=== PATIENT | male | born 1995 | race Caucasian/White ===

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

== ENCOUNTER 2017-01-16 22:03 | Emergency (ER) | payer OTHER ==
[2017-01-16 22:12] VITALS: BP 136/80; PULSE 100; RESP 18; TEMP 98
--- NOTE | 2017-01-16 22:39 | ED ---
General Adult HPI - General Chief complaint: Wound/Laceration Stated complaint: finger lac Time Seen by Provider: 01/16/17 22:29 Source: patient, RN notes reviewed Mode of arrival: ambulatory Limitations: no limitations - History of Present Illness Initial comments: 21-year-old male presents for left index finger laceration. Patient states he was cutting tomatoes and finger. He noticed bleeding to the area so he was concerned. Patient does not recall his last tetanus was less than 10 years ago. Patient states is no other injuries from the incident. Hemostasis finger he notices some stinging in the finger. Patient denies any other symptoms at this time. Patient vigorously there is no pain. He has noticed some bleeding from the site of the injury. Patient denies any recent fever, chills, shortness of breath, chest pain, back pain, abdominal pain, nausea vomiting, numbness or tingling, dysuria or hematuria, constipation or diarrhea, headaches or visual changes, or any other current symptoms. - Related Data Home Medications Medication Instructions Recorded Confirmed Divalproex [Depakote] 250 mg PO HS 12/22/15 01/16/17 Divalproex [Depakote] 500 mg PO BID 12/22/15 01/16/17 chlorproMAZINE HCL [Thorazine] 300 mg PO HS 06/30/16 01/16/17 lamoTRIgine [LaMICtal] 100 mg PO QAM 06/30/16 01/16/17 Allergies Allergy/AdvReac Type Severity Reaction Status Date / Time Penicillins Allergy Unknown Verified 06/30/16 19:38 Childhood venom-honey bee Allergy Unknown Verified 06/30/16 19:38 [bee venom (honey bee)] Childhood Review of Systems ROS Statement: Those systems with pertinent positive or pertinent negative responses have been documented in the HPI. ROS Other: All systems not noted in ROS Statement are negative. Past Medical History Past Medical History: No Reported History History of Any Multi-Drug Resistant Organisms: None Reported Past Surgical History: No Surgical Hx Reported Past Psychological History: Schizoaffective Disorder Smoking Status: Former smoker Past Alcohol Use History: None Reported Past Drug Use History: None Reported General Exam - General Exam Comments Initial Comments: General: The patient is awake and alert, in no distress, and does not appear acutely ill. Neck: The neck is supple, there is no tenderness. Cardiovascular: There is a regular rate and rhythm. No murmur, rub or gallop is appreciated. Respiratory: Lungs are clear to auscultation, respirations are non-labored, breath sounds are equal. No wheezes, stridor, rales, or rhonchi. Musculoskeletal: Sensation intact with 2+ pulses. Left upper extremity. Full range of motion of the left index finger patient does appear to have a small 1 cm abrasion to the distal aspect of the left index finger. 5 out of 5 muscle strength testing throughout. Neurological: CN II-XII intact, There are no obvious motor or sensory deficits. Coordination appears grossly intact. Speech is normal. Skin: Skin is warm and dry and no rashes or lesions are noted. Psychiatric: Normal mood and affect. Limitations: no limitations Course Vital Signs 01/16/17 22:09 Temperature 98.0 F Pulse Rate 100 Respiratory 18 Rate Blood Pressure 136/80 O2 Sat by Pulse 100 Oximetry Medical Decision Making - Medical Decision Making 21-year-old male presents emergency Department what appears to be an abrasion to the left finger. At this time patient underwent cleansing of the wound bandage was placed. We discussed return parameters all patient's questions. He stated that he understood the plan. All questions have been answered. He will be discharged home Disposition Clinical Impression: Abrasion of left index finger Disposition: HOME SELF-CARE Condition: Stable Instructions: Abrasion (ED) Additional Instructions: Please use medication as discussed. Please follow up with family doctor if symptoms have not improved over the next two days. Please return to the emergency room if your symptoms increase or worsen or for any other concerns. Referrals: Tian Banerjee Jr, [Primary Care Provider] - 1-2 days Time of Disposition: 22:37
== END 2017-01-16 23:12 | disposition home or self-care (01) ==
LOC: EC 22:03
DX: S60.411A Abrasion of left index finger, initial encounter (principal); F25.9 Schizoaffective disorder, unspecified; Z87.891 Personal history of nicotine dependence; Z79.899 Other long term (current) drug therapy; Z88.0 Allergy status to penicillin; Z91.030 Bee allergy status; W45.8XXA Other foreign body or object entering through skin, initial encounter
CPT/HCPCS: 99282

== ENCOUNTER 2017-02-11 17:00 | Emergency (ER) | payer OTHER ==
--- NOTE | 2017-02-11 17:39 | ED ---
Psych HPI - General Chief Complaint: Psychiatric Symptoms Stated Complaint: mental health eval Time Seen by Provider: 02/11/17 17:07 Source: patient, family, RN notes reviewed Mode of arrival: ambulatory Limitations: no limitations - History of Present Illness Initial Comments: This is 21-year-old male presents emergency room with family for psychiatric evaluation. Patient has extensive history of psychiatric problems and spent 4 years and he is awake. Patient has been normal and is followed by [facility]. Patient states that he does not want to talk this time will not give any states that he is not suicidal states it is very angry at his father and wants to hurt his father. Patient states he does not want to hurt any other people. Patient denies any drug use at this time feels a history of denies any alcohol abuse. Patient family gives most information at this time and states that he was questioning his father about taking something and states that he blew up and started yelling, swearing and hitting things - Related Data Home Medications Medication Instructions Recorded Confirmed chlorproMAZINE HCL [Thorazine] 300 mg PO HS 06/30/16 02/11/17 lamoTRIgine [LaMICtal] 100 mg PO QAM 06/30/16 02/11/17 Acetaminophen Tab [Tylenol Tab] 650 mg PO Q6H PRN 02/11/17 02/11/17 Divalproex ER [Depakote ER] 500 mg PO BID 02/11/17 02/11/17 Divalproex Sodium [Depakote ER] 250 mg PO HS 02/11/17 02/11/17 Loratadine [Claritin] 10 mg PO DAILY PRN 02/11/17 02/11/17 Allergies Allergy/AdvReac Type Severity Reaction Status Date / Time Penicillins Allergy Rash/Hives Verified 02/11/17 17:38 venom-honey bee Allergy Swelling Verified 02/11/17 17:38 [bee venom (honey bee)] Review of Systems ROS Statement: Those systems with pertinent positive or pertinent negative responses have been documented in the HPI. ROS Other: All systems not noted in ROS Statement are negative. Past Medical History Past Medical History: No Reported History History of Any Multi-Drug Resistant Organisms: None Reported Past Surgical History: No Surgical Hx Reported Past Psychological History: Schizoaffective Disorder Smoking Status: Former smoker Past Alcohol Use History: None Reported Past Drug Use History: None Reported General Exam Limitations: no limitations General appearance: alert, in no apparent distress Head exam: Present: atraumatic, normocephalic, normal inspection Eye exam: Present: normal appearance, PERRL, EOMI. Absent: scleral icterus, conjunctival injection, periorbital swelling ENT exam: Present: normal exam, normal oropharynx, mucous membranes moist, TM's normal bilaterally, normal external ear exam Neck exam: Present: normal inspection, full ROM. Absent: tenderness, meningismus, lymphadenopathy Respiratory exam: Present: normal lung sounds bilaterally. Absent: respiratory distress, wheezes, rales, rhonchi, stridor Cardiovascular Exam: Present: normal rhythm, tachycardia, normal heart sounds. Absent: systolic murmur, diastolic murmur, rubs, gallop, clicks GI/Abdominal exam: Present: soft, normal bowel sounds. Absent: distended, tenderness, guarding, rebound, rigid Psychiatric exam: Present: flat affect Skin exam: Present: warm, dry, intact, normal color. Absent: rash Course Vital Signs 02/11/17 02/11/17 17:06 19:40 Temperature 97.4 F L Pulse Rate 121 H 100 Respiratory 16 16 Rate Blood Pressure 136/80 144/81 O2 Sat by Pulse 98 98 Oximetry Medical Decision Making - Medical Decision Making 21-year-old male presented for behavioral issues. Patient was noted by [facility] and case discussed with psychiatrist. They do recommend the patient be discharged at this time. Patient parents agree to this plan and return parameters were discussed. Disposition Clinical Impression: Behavioral problems Disposition: HOME SELF-CARE Condition: Stable Instructions: Conduct Disorder (ED) Additional Instructions: Please return to the Emergency Department if symptoms worsen or any other concerns. Referrals: None,Stated [REFERRING] - 1-2 days Time of Disposition: 20:03
[2017-02-11 20:45] VITALS: BP 138/73; PULSE 107; RESP 18; TEMP 97.9
== END 2017-02-11 20:59 | disposition home or self-care (01) ==
LOC: EC 17:00
DX: R46.89 Other symptoms and signs involving appearance and behavior (principal); F25.9 Schizoaffective disorder, unspecified; Z87.891 Personal history of nicotine dependence; Z88.0 Allergy status to penicillin; Z91.030 Bee allergy status; Z79.899 Other long term (current) drug therapy
CPT/HCPCS: 80306; 82075; 99284

== ENCOUNTER 2018-05-18 19:55 | Emergency (ER) | payer MEDICARE, OTHER ==
--- NOTE | 2018-05-18 22:00 | XR ---
EXAMINATION TYPE: XR thoracic spine complete DATE OF EXAM: 05/18/2018 COMPARISON: NONE HISTORY: Fell down the stairs. Pain TECHNIQUE: 3 views FINDINGS: The thoracic vertebra have fairly normal spacing and alignment. Posterior elements are inta ct. There is no paraspinal mass. IMPRESSION: Normal thoracic spine.
--- NOTE | 2018-05-18 22:02 | XR ---
EXAMINATION TYPE: XR lumbar spine 2 or 3V DATE OF EXAM: 05/18/2018 COMPARISON: NONE HISTORY: Fell down the stairs. Back pain TECHNIQUE: 3 views FINDINGS: There is slight lumbar dextroscoliosis. Disc spaces are normal. Posterior elements are inta ct. There is no compression fracture. Sacroiliac joints appear normal. IMPRESSION: No fracture seen. Minimal dextroscoliosis.
--- NOTE | 2018-05-18 22:12 | ED ---
Fall HPI - General Chief Complaint: Fall Stated Complaint: Fell downstairs/back pain Time Seen by Provider: 05/18/18 20:52 Source: patient Mode of arrival: ambulatory - History of Present Illness Initial Comments: This is a 22-year-old male who denies past focal history presenting today for chief complaint of back pain after fall. Patient states that just prior to arrival he was walking down steps in socks. He states steps were wooden when he slipped falling on his back sliding down 5 stairs. She denies head injury, loss of consciousness or injury to any other extremity. Patient noted a small bruise on his back as well as localized pain. Patient states he took Advil which alleviated his pain however his mother insisted he present for evaluation. Patient denies any numbness, tingling, loss sensation, paresthesias of the upper or lower cherries. Patient denies any loss of bowel bladder control, urinary retention, numbness between the legs or perineal region , or muscle weakness of the lower extremity. Upon arrival patient is well- appearing, ambulatory without difficulty. Vital signs within normal limits. Remainder ROS negative, patient denies any recent fever, chills, shortness of breath, chest pain, abdominal pain, nausea or vomiting, numbness or tingling, dysuria or hematuria, constipation or diarrhea, headaches or visual changes, or any other complaints. - Related Data Home Medications Medication Instructions Recorded Confirmed chlorproMAZINE HCL [Thorazine] 300 mg PO HS 06/30/16 05/18/18 lamoTRIgine [LaMICtal] 100 mg PO QAM 06/30/16 05/18/18 Acetaminophen Tab [Tylenol Tab] 650 mg PO Q6H PRN 02/11/17 05/18/18 Divalproex ER [Depakote ER] 500 mg PO BID 02/11/17 05/18/18 Divalproex Sodium [Depakote ER] 250 mg PO HS 02/11/17 05/18/18 Loratadine [Claritin] 10 mg PO DAILY PRN 02/11/17 05/18/18 Ibuprofen [Advil] 200 mg PO Q8HR 05/18/18 05/18/18 Allergies Allergy/AdvReac Type Severity Reaction Status Date / Time Penicillins Allergy Rash/Hives Verified 05/18/18 20:51 venom-honey bee Allergy Swelling Verified 05/18/18 20:51 [bee venom (honey bee)] Review of Systems ROS Statement: Those systems with pertinent positive or pertinent negative responses have been documented in the HPI. ROS Other: All systems not noted in ROS Statement are negative. Constitutional: Denies: chills Eyes: Denies: eye pain ENT: Denies: ear pain, throat pain Respiratory: Denies: cough, dyspnea, wheezes Cardiovascular: Denies: chest pain Gastrointestinal: Denies: abdominal pain Genitourinary: Denies: urgency, dysuria Musculoskeletal: Reports: back pain Skin: Denies: rash, lesions Neurological: Denies: headache, weakness, numbness, paresthesias, confusion, abnormal gait, vertigo Past Medical History Past Medical History: No Reported History History of Any Multi-Drug Resistant Organisms: None Reported Past Surgical History: No Surgical Hx Reported Additional Past Surgical History / Comment(s): extra thumb removed from right hand. wisdom teeth. eustachian tubes. Past Psychological History: Schizoaffective Disorder Smoking Status: Former smoker Past Alcohol Use History: None Reported Past Drug Use History: None Reported General Exam - General Exam Comments Initial Comments: General: The patient is awake and alert, in no distress, and does not appear acutely ill. Eye: +3 pupils are equal, round and reactive to light, extra-ocular movements are intact. No nystagmus. There is normal conjunctiva bilaterally. No signs of icterus. Ears, nose, mouth and throat: There are moist mucous membranes and no oral lesions. Neck: The neck is supple, there is no tenderness or JVD. Cardiovascular: There is a regular rate and rhythm. No murmur, rub or gallop is appreciated. Respiratory: Lungs are clear to auscultation, respirations are non-labored, breath sounds are equal. No wheezes, stridor, rales, or rhonchi. Musculoskeletal: Inspection of the lumbar spine there is small area of ecchymosis noted paravertebral of the lower thoracic region. Patient denies any midline tenderness to palpation of the length of the spinal column. Patient is able to fully flex, extend hyperextend, lateral flex and rotate at the lumbar and thoracic spine without difficulty or complaints of pain. No noted curvatures upon Mccabe in for testing. Strength 5/5 of the lower extremities equally bilaterally. Sensation intact of the lower extremities equally bilaterally, no saddle anesthesia noted.. DP ulses equal bilaterally 2+ . +2 out of 5 deep tendon reflexes of the patellar bilaterally. No fasciculations or myoclonus noted. Neurological: A&O x 3. CN II-XII intact, There are no obvious motor or sensory deficits. Coordination appears grossly intact. Speech is normal. Skin: Skin is warm and dry and no rashes or lesions are noted. Psychiatric: Cooperative, appropriate mood & affect, normal judgment. Limitations: no limitations Course Vital Signs 05/18/18 05/18/18 05/18/18 20:16 21:10 22:51 Temperature 98.1 F 98.3 F Pulse Rate 114 H 104 H 96 Respiratory 20 16 18 Rate Blood Pressure 134/76 141/77 O2 Sat by Pulse 100 99 97 Oximetry Medical Decision Making - Medical Decision Making No focal neurological deficit examination. Patient neurovascularly intact. No signs concerning for cauda equina at this time. X-rays negative for fracture. Patient refusing pain medication, stating he was told to come for hydration by mother. Patient states he is ready for discharge. At this time to feel patient is safe for discharge with primary care follow-up next 1-2 days. I gave patient instruction on symptomatically care. Patient verbalizes understanding. All return parameters were discussed at length patient who verbalizes understanding. I answered all patient's questions best ability. Patient was discharged in stable condition with vital signs within acceptable limits. Case discussed with Dr. Schumacher prior to discharge. Disposition Clinical Impression: Fall, Back pain Disposition: HOME SELF-CARE Condition: Good Instructions: Low Back Strain (ED) Additional Instructions: Please use over the counter medication as discussed. Please follow-up with family doctor in the next 2 days. Please return to emergency room if the symptoms increase or worsen or for any other concerns. Is patient prescribed a controlled substance at d/c from ED?: No Referrals: Tian Banerjee Jr, [Primary Care Provider] - 1-2 days Time of Disposition: 22:12
[2018-05-18 22:52] VITALS: BP 141/77; PULSE 96; RESP 18; TEMP 98.3
== END 2018-05-18 22:43 | disposition home or self-care (01) ==
LOC: EC 19:55
DX: M54.9 Dorsalgia, unspecified (principal); F25.9 Schizoaffective disorder, unspecified; Z79.899 Other long term (current) drug therapy; Z88.0 Allergy status to penicillin; Z91.030 Bee allergy status; Z87.891 Personal history of nicotine dependence; W10.9XXA Fall (on) (from) unspecified stairs and steps, initial encounter; Y93.01 Activity, walking, marching and hiking; Y92.009 Unspecified place in unspecified non-institutional (private) residence as the place of occurrence of the external cause
CPT/HCPCS: 72072; 72100; 99283

== ENCOUNTER → 2018-08-20 | Outpatient (CLI) | payer MEDICARE, OTHER ==
[2018-08-20 11:34] LABS: Basophils % (A) 1 %; Eosinophils # (A) 0.2 k/uL (0-0.7); Eosinophils % (A) 4 %; HCT 43.8 % (39.0-53.0); Lymphocytes # (A) 1.9 k/uL (1.0-4.8); Lymphocytes % (A) 42 %; MCH 28.4 pg (25.0-35.0); MCHC 34.2 g/dL (31.0-37.0); MCV 83.1 fL (80.0-100.0); Mean Platelet Volume 8.5; Monocytes # (A) 0.4 k/uL (0-1.0); Monocytes % (A) 8 %; Neutrophils # (A) 1.9 k/uL (1.3-7.7); Neutrophils % (A) 42 %; Platelet Count 234 k/uL (150-450); RBC 5.27 m/uL (4.30-5.90); RDW 13.9 % (11.5-15.5); WBC 4.6 k/uL (3.8-10.6)
[2018-08-20 17:44] LABS: LDL Cholesterol,Calculated 77.8 mg/dL (0.0-131.0); VLDL Calculation 11.2 mg/dL (5.00-40.00)
[2018-08-20 18:05] LABS: Valproic Acid (Depakene) 81.7 ug/mL (50.0-100.0)
[2018-08-20 19:09] LABS: Hemoglobin A1C 5.1 % (4.0-6.0)
== END | disposition home or self-care (01) ==
LOC: LABWHC1 10:28
PROVIDERS: ATTEND Family Medicine
DX: Z51.81 Encounter for therapeutic drug level monitoring (principal); Z79.899 Other long term (current) drug therapy
CPT/HCPCS: 36415; 80061; 80164; 83036; 84443; 85025

== ENCOUNTER → 2019-11-01 | Outpatient (CLI) | payer MEDICARE, OTHER ==
[2019-11-01 12:05] LABS: Basophils % (A) 1 %; Eosinophils # (A) 0.2 k/uL (0-0.7); Eosinophils % (A) 3 %; HGB 14.5 gm/dL (13.0-17.5); Lymphocytes # (A) 2.2 k/uL (1.0-4.8); Lymphocytes % (A) 39 %; MCH 28.6 pg (25.0-35.0); MCHC 33.7 g/dL (31.0-37.0); MCV 84.9 fL (80.0-100.0); Monocytes # (A) 0.5 k/uL (0-1.0); Monocytes % (A) 10 %; Neutrophils # (A) 2.4 k/uL (1.3-7.7); Neutrophils % (A) 43 %; Platelet Count 229 k/uL (150-450); RBC 5.06 m/uL (4.30-5.90); RDW 13.4 % (11.5-15.5); WBC 5.5 k/uL (3.8-10.6)
[2019-11-01 19:41] LABS: Albumin 4.6 g/dL (3.80-4.90); Albumin/Globulin Ratio 2.09 (1.60-3.17); Anion Gap 10.7 mmol/L (4.00-12.00); BUN/Creat Ratio 15.56 Ratio (12.00-20.00); Calcium 9.6 mg/dL (8.7-10.3); Carbon Dioxide 25.3 mmol/L (21.6-31.8); Chol/HDL Ratio 3.27; Globulin 2.2 g/dL (1.6-3.3); LDL Cholesterol,Calculated 85.4 mg/dL (0.0-131.0); Non-African American GFR(CKD) 120.8 (60.0-200.0); Potassium 4.7 mmol/L (3.5-5.5); Total Bilirubin 0.5 mg/dL (0.2-1.2); Total Protein 6.8 g/dL (6.2-8.2); VLDL Calculation 14.6 mg/dL (5.00-40.00)
[2019-11-01 19:44] LABS: Valproic Acid (Depakene) 75.4 ug/mL (50.0-100.0)
[2019-11-01 19:49] LABS: T4, Free (Free Thyroxine) 1.1 ng/dL (0.80-1.80)
[2019-11-01 21:16] LABS: Hemoglobin A1C 5.5 % (4.0-6.0)
== END | disposition home or self-care (01) ==
LOC: LABWHC1 09:54
PROVIDERS: ATTEND Nurse Practitioner Psychiatric/Mental Health
DX: Z51.81 Encounter for therapeutic drug level monitoring (principal); Z79.899 Other long term (current) drug therapy
CPT/HCPCS: 36415; 80053; 80061; 80164; 83036; 84439; 84443; 85025

== ENCOUNTER 2020-06-09 17:49 | Emergency (ER) | payer MEDICARE, OTHER ==
[2020-06-09 17:59] VITALS: BP 147/85; PULSE 112; RESP 20
[2020-06-09 18:00] VITALS: TEMP 98.2
[2020-06-09] MEDS ORDERED: ACETAMINOPHEN TAB 500 MG TAB PO STA (18:23)
--- NOTE | 2020-06-09 18:26 | ED ---
Head Injury HPI - General Chief complaint: Head Injury Stated complaint: head injury Time Seen by Provider: 06/09/20 18:07 Source: patient Mode of arrival: ambulatory Limitations: no limitations - History of Present Illness Initial comments: Patient is a 24-year-old male presenting to the emergency Department with complaints of a headache and rated it happened yesterday. Patient states approximately 11 AM yesterday he was walking around a bus when it moved forward slightly and he hit the left side of his forehead on the bus smear. He states the bus was barely moving, he did not lose consciousness. He did not have any dizziness or vomiting afterwards. Patient states he went to work and had a regular day. Patient states today he told his parents about what happened and also his coworkers wanted him to be evaluated at the ER. He states he does have a mild headache on the left side of his forehead but no dizziness, no lightheadedness, no blurry vision. He denies any nausea or vomiting. He states he has not taken any Tylenol or Motrin for his headache. He denies any other injuries or complaints at this time. Upon arrival to the ER, his vital signs are stable. - Related Data Home Medications Medication Instructions Recorded Confirmed chlorproMAZINE HCL [Thorazine] 300 mg PO HS 06/30/16 05/18/18 lamoTRIgine [LaMICtal] 100 mg PO QAM 06/30/16 05/18/18 Acetaminophen Tab [Tylenol Tab] 650 mg PO Q6H PRN 02/11/17 05/18/18 Divalproex ER [Depakote ER] 500 mg PO BID 02/11/17 05/18/18 Divalproex Sodium [Depakote ER] 250 mg PO HS 02/11/17 05/18/18 Loratadine [Claritin] 10 mg PO DAILY PRN 02/11/17 05/18/18 Ibuprofen [Advil] 200 mg PO Q8HR 05/18/18 05/18/18 Allergies/Adverse reactions: Allergies Allergy/AdvReac Type Severity Reaction Status Date / Time Penicillins Allergy Rash/Hives Verified 06/09/20 17:59 venom-honey bee Allergy Swelling Verified 06/09/20 17:59 [bee venom (honey bee)] Review of Systems ROS Statement: Those systems with pertinent positive or pertinent negative responses have been documented in the HPI. ROS Other: All systems not noted in ROS Statement are negative. Past Medical History Past Medical History: No Reported History History of Any Multi-Drug Resistant Organisms: None Reported Past Surgical History: No Surgical Hx Reported Additional Past Surgical History / Comment(s): extra thumb removed from right hand. wisdom teeth. eustachian tubes. Past Psychological History: Schizoaffective Disorder Smoking Status: Former smoker Past Alcohol Use History: None Reported Past Drug Use History: None Reported General Exam - General Exam Comments Initial Comments: GENERAL: Patient is well-developed and well-nourished. Patient is nontoxic and in no acute distress. HEAD: Atraumatic, normocephalic. There are no hematomas, there is a very mild abrasion to the left side of the forehead. EYES: Pupils equal round and reactive to light, extraocular movements intact, sclera anicteric, conjunctiva are normal. Eyelids were unremarkable. ENT: TMs normal, nares patent, oropharynx clear without exudates. Moist mucous membranes. NECK: Normal range of motion, supple without lymphadenopathy or JVD. LUNGS: Unlabored respirations. Breath sounds clear to auscultation bilaterally and equal. No wheezes rales or rhonchi. HEART: Regular rate and rhythm without murmurs, rubs or gallops. ABDOMEN: Soft, nontender, normoactive bowel sounds. No guarding, no rebound. No masses appreciated. : Deferred MUSCULOSKELETAL: Normal extremities with adequate strength and normal range of motion, no pitting or edema. No clubbing or cyanosis. NEUROLOGICAL: Patient is alert and oriented x 3. Motor and sensory are also intact. Cranial nerves II through XII grossly intact. Symmetrical smile. Normal speech, normal gait. PSYCH: Normal mood, normal affect. SKIN: Warm, Dry, normal turgor, no rashes or lesions noted, other than above. Limitations: no limitations Course Vital Signs 06/09/20 06/09/20 17:56 17:59 Temperature 98.2 F Pulse Rate 112 H Respiratory 20 Rate Blood Pressure 147/85 O2 Sat by Pulse 99 Oximetry Medical Decision Making - Medical Decision Making Patient is a 24-year-old male here for a head injury that happened yesterday at 11 AM. He is complaining of a mild headache, there was no loss of consciousness, no nausea or vomiting, no dizziness. His exam today is unremarkable, no neuro deficits. He does have a very mild abrasion to the left side of the forehead, no hematoma. No neck pain. He has not tried any Tylenol or Motrin for his headache. I will give him some Tylenol today. I discussed with patient that his exam is unremarkable, he may have sustained a very mild concussion however I believe his symptoms are just related to a possible contusion. I did recommend him to rest over the next day, he states he does have a few days off of work. He is stable for discharge. Return parameters were discussed with the patient and he verbalized understanding. Case discussed with Dr. Perez. Disposition Clinical Impression: Contusion of scalp Disposition: HOME SELF-CARE Condition: Stable Instructions (If sedation given, give patient instructions): Contusion in Adults (ED) Additional Instructions: Please return to the Emergency Department if symptoms worsen or any other concerns. May take Tylenol or Motrin for headaches. Recommend resting over the next 1-2 days. Please follow-up with your regular doctor. Is patient prescribed a controlled substance at d/c from ED?: No Referrals: Tian Banerjee Jr, DO [Primary Care Provider] - 1-2 days
== END 2020-06-09 18:45 | disposition home or self-care (01) ==
LOC: EC 17:49
DX: S00.03XA Contusion of scalp, initial encounter (principal); F25.9 Schizoaffective disorder, unspecified; Z79.899 Other long term (current) drug therapy; Z88.0 Allergy status to penicillin; Z91.030 Bee allergy status; Z87.891 Personal history of nicotine dependence; W22.8XXA Striking against or struck by other objects, initial encounter; Y93.01 Activity, walking, marching and hiking; Y92.89 Other specified places as the place of occurrence of the external cause
CPT/HCPCS: 99283

== ENCOUNTER → 2020-08-02 | Outpatient (CLI) | payer MEDICARE, OTHER ==
[2020-08-03 03:40] LABS: Chol/HDL Ratio 4.84; LDL Cholesterol,Calculated 107.2 mg/dL (0.0-131.0); VLDL Calculation 34.8 mg/dL (5.00-40.00); Valproic Acid (Depakene) 82.2 ug/mL (50.0-100.0)
[2020-08-03 03:48] LABS: T4, Free (Free Thyroxine) 1.2 ng/dL (0.80-1.80)
== END | disposition home or self-care (01) ==
LOC: LABWHC1 10:22 → EEVIPCON 10:22
PROVIDERS: ATTEND Psychiatry & Neurology Psychiatry
DX: Z79.899 Other long term (current) drug therapy (principal)
CPT/HCPCS: 36415; 80061; 80164; 80175; 82947; 83036; 84439; 84443

== ENCOUNTER 2020-10-30 20:07 | Emergency (ER) | payer MEDICARE, OTHER ==
[2020-10-30 20:26] VITALS: TEMP 97.8
[2020-10-30] MEDS ORDERED: GLUCAGON 1 MG/ML VIAL IVP STA (20:35)
[2020-10-30] MEDS ORDERED: DIAZEPAM 5 MG/ML 2 ML INJ IVP STA (20:35)
[2020-10-30] MEDS ORDERED: SODIUM CHLORIDE 0.9% 500 ML 500 ML IV ONE (20:36)
--- NOTE | 2020-10-30 20:43 | ED ---
General Adult HPI - General Chief complaint: ENT Stated complaint: Meat stuck in throat Time Seen by Provider: 10/30/20 20:31 Source: patient, RN notes reviewed, old records reviewed Mode of arrival: ambulatory Limitations: no limitations - History of Present Illness Initial comments: 25-year-old male presenting with suspected esophageal foreign body. Patient had been eating pork, feels that he has a piece of pork lodged in his throat. He's CAD no respiratory distress but has been unable to swallow any liquids since approximately 90 minutes ago when the food first was lodged. He's had this happen before and has required endoscopy in the past. No dyspnea. - Related Data Home Medications Medication Instructions Recorded Confirmed lamoTRIgine [LaMICtal] 100 mg PO DAILY 06/30/16 10/30/20 Divalproex ER [Depakote ER] 500 mg PO BID 02/11/17 10/30/20 Divalproex Sodium [Depakote ER] 250 mg PO HS 02/11/17 10/30/20 FLUoxetine HCL [PROzac] 10 mg PO DAILY 10/30/20 10/30/20 OLANZapine [ZyPREXA] 10 mg PO HS 10/30/20 10/30/20 cloNIDine HCL 0.2 mg PO HS 10/30/20 10/30/20 metFORMIN HCL 1,000 mg PO BID 10/30/20 10/30/20 Previous Rx's Medication Instructions Recorded Omeprazole 20 mg PO BID #60 tablet. 10/30/20 Allergies Allergy/AdvReac Type Severity Reaction Status Date / Time Penicillins Allergy Rash/Hives Verified 10/30/20 21:39 venom-honey bee Allergy Swelling Verified 10/30/20 21:39 [bee venom (honey bee)] Review of Systems ROS Statement: Those systems with pertinent positive or pertinent negative responses have been documented in the HPI. ROS Other: All systems not noted in ROS Statement are negative. Past Medical History Past Medical History: Diabetes Mellitus History of Any Multi-Drug Resistant Organisms: None Reported Past Surgical History: No Surgical Hx Reported Additional Past Surgical History / Comment(s): extra thumb removed from right hand. wisdom teeth. eustachian tubes. Past Psychological History: Schizoaffective Disorder Smoking Status: Former smoker Past Alcohol Use History: None Reported Past Drug Use History: None Reported General Exam Limitations: no limitations General appearance: alert, in no apparent distress Head exam: Present: atraumatic, normocephalic Eye exam: Present: normal appearance, PERRL ENT exam: Present: normal exam, mucous membranes moist Neck exam: Present: normal inspection. Absent: tenderness, meningismus Respiratory exam: Absent: respiratory distress, stridor Cardiovascular Exam: Present: regular rate, normal rhythm GI/Abdominal exam: Present: soft. Absent: distended, tenderness, guarding Extremities exam: Present: normal inspection, normal capillary refill. Absent: pedal edema, calf tenderness Neurological exam: Present: alert, oriented X3, CN II-XII intact. Absent: motor sensory deficit Psychiatric exam: Present: normal affect, normal mood Skin exam: Present: warm, dry, intact. Absent: cyanosis, diaphoretic Course Vital Signs 10/30/20 10/30/20 10/30/20 20:22 20:55 21:00 Temperature 97.8 F Pulse Rate 116 H Respiratory 20 18 18 Rate Blood Pressure 162/104 O2 Sat by Pulse 97 98 Oximetry 10/30/20 23:39 Temperature Pulse Rate 99 Respiratory 18 Rate Blood Pressure 116/74 O2 Sat by Pulse 97 Oximetry - Reevaluation(s) Reevaluation #1: 10/30/20 21:33 Dr. Grimes has been contacted regarding endoscopy. Medical Decision Making - Medical Decision Making 25-year-old male with esophageal foreign body. Patient does undergo EGD in the emergency department performed by gastroenterology Dr. Grimes. Care signed out to Dr. Castellanos at shift change. Disposition Clinical Impression: Esophageal foreign body Disposition: HOME SELF-CARE Condition: Good Instructions (If sedation given, give patient instructions): Esophageal Foreign Body (ED) Prescriptions: Omeprazole 20 mg PO BID #60 tablet.dr Is patient prescribed a controlled substance at d/c from ED?: No Referrals: Albert Khan MD [Primary Care Provider] - 1-2 days Aaron Grimes MD [STAFF PHYSICIAN] - 1-2 days
[2020-10-30 20:56] VITALS: RESP 18
--- NOTE | 2020-10-30 21:16 | XR ---
EXAMINATION TYPE: XR chest 1V portable DATE OF EXAM: 10/30/2020 COMPARISON: [id number] HISTORY: Chest pain TECHNIQUE: FINDINGS: Heart and mediastinum are normal. Lungs are clear. Diaphragm is normal. Bony thorax appears normal. IMPRESSION: Normal chest. No change.
[2020-10-30] MEDS ORDERED: IV FLUID CONTINUATION 1,000 ML IV ONE (22:09)
[2020-10-30] MEDS ORDERED: PROPOFOL 10 MG/ML 20 ML VIAL IV ONE (22:16)
[2020-10-30] MEDS ORDERED: SUCCINYLCHOLINE CHLORIDE 100 MG/5 ML SYR IV ONE (22:16)
[2020-10-30] MEDS ORDERED: PANTOPRAZOLE 40 MG/10 ML VIAL IVP STA (22:59)
[2020-10-30] MEDS ORDERED: SODIUM CHLORIDE 0.9% 1,000 ML IV ONE (23:00)
--- NOTE | 2020-10-30 23:06 | P.CONS ---
History of Present Illness - Reason for Consult Consult date: 10/30/20 Esophageal foreign body Requesting physician: Chato Tillman - Chief Complaint Esophageal dysphagia - History of Present Illness 25-year-old male with medical history significant for esophageal foreign body presenting with esophageal dysphagia after eating. The patient was eating approximately 3 hours ago when he feels as if he had a piece of pork lodged in his esophagus. The patient has had difficulty tolerating secretions since that time and presented to the hospital for further evaluation. Previously he has had 2 episodes requiring esophagogastroduodenoscopy for foreign body removal. The patient reports that prior episodes were in 2016 and 2017 I wish any transferred to [facility] to be seen by pediatric cnc specialist. Previously he was on omeprazole therapy but currently is not on any PPI therapy. He is denying any abdominal pain or nausea and vomiting at this time. He continues to have difficulty tolerating secretions. Review of Systems REVIEW OF SYSTEMS: CONSTITUTIONAL: Denies any fevers, chills, weight change or fatigue. CARDIOVASCULAR: Denies any chest pain, palpitations high or low blood pressures RESPIRATORY: Denies any shortness of breath, hemoptysis or cough. GENITOURINARY: No dysuria or hematuria. MUSCULOSKELETAL: No weakness reported. SKIN: Denies any new rashes or lesions, jaundice or pallor. PSYCHIATRIC: Denies any depression or anxiety. NEUROLOGY: Denies headache, denies any new focal deficits. EARS/NOSE/THROAT: No recent hearing change, congestion, nasal discharge or sore throat. EYES: No pain in eyes, discharge or change in vision. GASTROINTESTINAL: As per HPI. Past Medical History Past Medical History: Diabetes Mellitus History of Any Multi-Drug Resistant Organisms: None Reported Past Surgical History: No Surgical Hx Reported Additional Past Surgical History / Comment(s): extra thumb removed from right hand. wisdom teeth. eustachian tubes. Past Psychological History: Schizoaffective Disorder Smoking Status: Former smoker Past Alcohol Use History: None Reported Past Drug Use History: None Reported Additional History: Family history: Reviewed with the patient noncontributory to current medical presentation Medications and Allergies Home Medications Medication Instructions Recorded Confirmed Type lamoTRIgine [LaMICtal] 100 mg PO DAILY 06/30/16 10/30/20 History Divalproex ER [Depakote ER] 500 mg PO BID 02/11/17 10/30/20 History Divalproex Sodium [Depakote ER] 250 mg PO HS 02/11/17 10/30/20 History FLUoxetine HCL [PROzac] 10 mg PO DAILY 10/30/20 10/30/20 History OLANZapine [ZyPREXA] 10 mg PO HS 10/30/20 10/30/20 History Omeprazole 20 mg PO BID #60 tablet. 10/30/20 Rx cloNIDine HCL 0.2 mg PO HS 10/30/20 10/30/20 History metFORMIN HCL 1,000 mg PO BID 10/30/20 10/30/20 History Allergies Allergy/AdvReac Type Severity Reaction Status Date / Time Penicillins Allergy Rash/Hives Verified 10/30/20 21:39 venom-honey bee Allergy Swelling Verified 10/30/20 21:39 [bee venom (honey bee)] Physical Exam Vitals: Vital Signs Temp Pulse Resp BP Pulse Ox 10/30/20 21:00 18 98 10/30/20 20:55 18 10/30/20 20:22 97.8 F 116 H 20 162/104 97 Intake and Output 10/30/20 10/30/20 10/30/20 06:59 14:59 22:59 Other: Weight 100.244 kg On physical examination, patient appears comfortable in no apparent distress. HEAD: Normocephalic, atraumatic. EYES: No scleral icterus. No conjunctival injection. MOUTH: No lesions, tongue midline. NECK: Trachea midline, no gross abnormalities. CHEST: Clear to auscultation with no wheezing or rhonchi appreciated. HEART: Regular rate and rhythm. ABDOMEN: Soft, nontender. Bowel sounds are positive. No organomegaly. No guarding or rigidity. EXTREMITIES: No pedal edema. SKIN: No rashes, no jaundice. NEUROLOGIC: Alert and oriented x3. No focal deficits. Assessment and Plan (1) Esophageal foreign body Narrative/Plan: 25-year-old male presents to the hospital with difficulty swallowing secondary to esophageal foreign body. 2 prior episodes of 16 and 17 transferred to tertiary center for evaluation by pediatric cnc specialist. No prior episodes and none since that time. Previously on omeprazole. He presents to the hospital with difficulty swallowing and managing secretions after eating pork earlier in the day. Current Visit: Yes Status: Acute Code(s): T18.108A - UNSP FOREIGN BODY IN ESOPHAGUS CAUSING OTH INJURY, INIT SNOMED Code(s): 13694164 (2) Esophageal dysphagia Current Visit: Yes Status: Acute Code(s): R13.10 - DYSPHAGIA, UNSPECIFIED SNOMED Code(s): 15533834 Plan: Supportive care Nothing by mouth Plan for urgent EGD for further evaluation with all the risks, benefits and possible complications The patient Length of all discussion tinter to his satisfaction Recommend Protonix or omeprazole daily upon discharge Follow up in the GI clinic for further recommendations and repeat EGD with dilation or biopsy depending on findings of urgent EGD Thank you for allowing us to participate in the care of the patient
--- NOTE | 2020-10-30 23:10 | P.PCN ---
Date of Procedure: 10/30/20 Description of Procedure: BRIEF HISTORY: 25-year-old male with medical history significant for esophageal foreign body presenting with esophageal dysphagia after eating. The patient was eating approximately 3 hours ago when he feels as if he had a piece of pork lodged in his esophagus. The patient has had difficulty tolerating secretions since that time and presented to the hospital for further evaluation. Previously he has had 2 episodes requiring esophagogastroduodenoscopy for foreign body removal. The patient reports that prior episodes were in 2016 and 2017 I wish any transferred to [facility] to be seen by pediatric fiber drier operator. Previously he was on omeprazole therapy but currently is not on any PPI therapy. He is denying any abdominal pain or nausea and vomiting at this time. He continues to have difficulty tolerating secretions. PROCEDURE PERFORMED: Esophagogastroduodenoscopy with foreign body removal. PREOPERATIVE DIAGNOSIS: Esophageal foreign body. ESTIMATED BLOOD LOSS: Minimal. IV sedation per anesthesia. PROCEDURE: After informed consent was obtained, the patient was brought into the endoscopy unit. IV sedation was administered by Anesthesia under continuous monitoring. Initially the Olympus GIF-190 video endoscope was inserted into the mouth. Esophagus intubated without any difficulty. It was gradually advanced into the distal esophagus where a large amount of food was noted. A forceps and snare were used to remove some of the debris. The endoscope was then used to gently push the remaining food debris into the stomach. Endoscope was then advanced into the stomach and duodenum and carefully examined. The bulb and the second part of the duodenum appeared normal. The scope at this time was withdrawn to the stomach, adequately insufflated with air, and upon careful examination, mucosa of the antrum, body, cardia and the fundus appeared normal, except for large amount of food debris. The scope was then withdrawn into the esophagus. The GE junction was located at 39 cm from the incisors. The esophagus appeared normal, except for esophagitis in the area of prior food impaction. There were no erosions or ulcerations seen and the patient tolerated the procedure well. IMPRESSION: 1. Esophageal foreign body with removal. 2. Mild esophagitis secondary to esophageal foreign body. 3. Large amount food debris in the stomach . RECOMMENDATIONS: The findings of this examination were discussed with the patient. Okay for full liquid diet. Recommend initiation of omeprazole therapy with the patient was previously on an discontinued. Follow-up in the GI clinic for possible repeat EGD with biopsy with suspicion of esophageal pathology and eosinophilic esophagitis.
[2020-10-30 23:40] VITALS: BP 116/74; PULSE 99
== END 2020-10-31 00:30 ==
LOC: EEVIPCON 20:07 → EC 20:07
DX: T18.108A Unspecified foreign body in esophagus causing other injury, initial encounter (principal); E11.9 Type 2 diabetes mellitus without complications; F25.9 Schizoaffective disorder, unspecified; Z87.891 Personal history of nicotine dependence; Z79.84 Long term (current) use of oral hypoglycemic drugs
CPT/HCPCS: 71045; 43247; 99283; 96374; 96375 ×2; J1610; J3360; J0330; J2704; C9113

== ENCOUNTER → 2021-03-06 | Outpatient (CLI) | payer MEDICARE, OTHER ==
[2021-03-06 11:41] LABS: Basophils # (A) 0.02 X 10*3/uL (0.00-0.10); Basophils % (A) 0.3 %; Eosinophils # (A) 0.28 X 10*3/uL (0.04-0.35); Eosinophils % (A) 4.3 %; HCT 43.7 % (39.6-50.0); Lymphocytes # (A) 2.79 X 10*3/uL (0.90-5.00); Lymphocytes % (A) 43.1 %; MCH 28.8 pg (27.0-32.0); MCHC 34.3 g/dL (32.0-37.0); MCV 83.9 fL (80.0-97.0); Mean Platelet Volume 12.5 fL (9.5-12.2); Monocytes # (A) 0.64 X 10*3/uL (0.20-1.00); Monocytes % (A) 9.9 %; Neutrophils # (A) 2.73 X 10*3/uL (1.80-7.70); Neutrophils % (A) 42.1 %; Platelet Count 248 X 10*3/uL (140-440); RBC 5.21 X 10*6/uL (4.40-5.60); RDW 12.9 % (11.5-14.5); WBC 6.48 X 10*3/uL (4.50-10.00)
== END | disposition home or self-care (01) ==
LOC: LABWHC1 08:36
PROVIDERS: ATTEND Psychiatry & Neurology Psychiatry
DX: Z79.899 Other long term (current) drug therapy (principal)
CPT/HCPCS: 36415; 80164; 85025

== ENCOUNTER 2021-05-02 15:11 | Emergency (ER) | payer MEDICARE, OTHER ==
[2021-05-02 15:54] VITALS: RESP 18; TEMP 101
--- NOTE | 2021-05-02 16:20 | XR ---
EXAMINATION TYPE: XR chest 2V DATE OF EXAM: 05/02/2021 COMPARISON: Chest x-ray 10/30/2020 HISTORY: Upper respiratory infection, cough TECHNIQUE: Frontal and lateral views of the chest are obtained. FINDINGS: There is no focal air space opacity, pleural effusion, or pneumothorax seen. The cardiac silhouette size is within normal limits. The osseous structures are intact, there is a spinal curva ture. IMPRESSION: No acute cardiopulmonary process.
[2021-05-02] MEDS ORDERED: ACETAMINOPHEN TAB 325 MG TAB PO STA (16:30)
[2021-05-02] MEDS ORDERED: DEXAMETHASONE SOD PHOSPHATE 10 MG/ML 1 ML VIAL IVP STA (16:30)
[2021-05-02] MEDS ORDERED: IBUPROFEN 600 MG TAB PO STA (16:30)
--- NOTE | 2021-05-02 16:35 | ED ---
Recheck HPI - General Chief Complaint: Recheck/Abnormal Lab/Rx Stated Complaint: Cough-wants covid screening Time Seen by Provider: 05/02/21 15:50 Source: patient, RN notes reviewed Mode of arrival: ambulatory Limitations: no limitations - History of Present Illness Initial Comments: Patient is a 25-year-old male that presents to the emergency department complaining of a scratchy throat times one. He notes he can emergency room to get evaluated for possible Covid. Patient was otherwise well-appearing in no apparent distress or pain. He denied any chest pain shortness of breath headache nausea vomiting diarrhea constipation fatigue chills. - Related Data Home Medications Medication Instructions Recorded Confirmed lamoTRIgine [LaMICtal] 100 mg PO DAILY 06/30/16 10/30/20 Divalproex ER [Depakote ER] 500 mg PO BID 02/11/17 10/30/20 Divalproex Sodium [Depakote ER] 250 mg PO HS 02/11/17 10/30/20 FLUoxetine HCL [PROzac] 10 mg PO DAILY 10/30/20 10/30/20 OLANZapine [ZyPREXA] 10 mg PO HS 10/30/20 10/30/20 cloNIDine HCL 0.2 mg PO HS 10/30/20 10/30/20 metFORMIN HCL [Glucophage] 1,000 mg PO BID 10/30/20 10/30/20 Previous Rx's Medication Instructions Recorded Omeprazole 20 mg PO BID #60 tablet. 10/30/20 Allergies Allergy/AdvReac Type Severity Reaction Status Date / Time Penicillins Allergy Rash/Hives Verified 05/02/21 15:53 venom-honey bee Allergy Swelling Verified 05/02/21 15:53 [bee venom (honey bee)] Review of Systems ROS Statement: Those systems with pertinent positive or pertinent negative responses have been documented in the HPI. ROS Other: All systems not noted in ROS Statement are negative. Past Medical History Past Medical History: Diabetes Mellitus History of Any Multi-Drug Resistant Organisms: None Reported Past Surgical History: No Surgical Hx Reported Additional Past Surgical History / Comment(s): extra thumb removed from right hand. wisdom teeth. eustachian tubes. Past Psychological History: Schizoaffective Disorder Smoking Status: Former smoker Past Alcohol Use History: None Reported Past Drug Use History: None Reported General Exam Limitations: no limitations General appearance: alert, in no apparent distress Head exam: Present: atraumatic, normocephalic, normal inspection Eye exam: Present: normal appearance, PERRL, EOMI. Absent: scleral icterus, conjunctival injection, periorbital swelling ENT exam: Present: normal exam, mucous membranes moist Neck exam: Present: normal inspection Respiratory exam: Present: normal lung sounds bilaterally. Absent: respiratory distress, wheezes, rales, rhonchi, stridor Cardiovascular Exam: Present: regular rate, normal rhythm, normal heart sounds. Absent: systolic murmur, diastolic murmur, rubs, gallop, clicks Extremities exam: Present: normal inspection, full ROM, normal capillary refill. Absent: tenderness, pedal edema, joint swelling, calf tenderness Neurological exam: Present: alert, oriented X3 Psychiatric exam: Present: normal affect, normal mood Skin exam: Present: warm, dry, intact, normal color. Absent: rash Course Vital Signs 05/02/21 15:51 Temperature 101 F H Pulse Rate 130 H Respiratory 18 Rate Blood Pressure 154/72 O2 Sat by Pulse 97 Oximetry Medical Decision Making - Medical Decision Making 25-year-old male complaining of scratchy throat coming to ER for Covid testing. Covid test, chest x-ray, 10 mg of Decadron, 600 mg of Motrin, 650 mg of Tylenol ordered. Covid test positive. Chest x-ray shows no acute card up on her process. Patient's guardian was contacted and states that he is okay to do the monoclonal antibody infusion because he does meet criteria. Patient is go discharge home after. Case discussed with Dr. Graham, patient discharge - Lab Data Lab Results 05/02/21 Range/Units 15:54 Coronavirus (PCR) Detected A (Not Detectd) - Radiology Data Radiology results: report reviewed, image reviewed Chest x-ray: No acute cardiopulmonary process. Disposition Clinical Impression: COVID Disposition: HOME SELF-CARE Condition: Stable Instructions (If sedation given, give patient instructions): Coronavirus Disease 2019 (COVID-19) Additional Instructions: Please return to the Emergency Department if symptoms worsen or any other concerns. Follow-up with primary care 1-2 days. Quarantine per CDC guidelines. Take Tylenol and Motrin alternating every 3 hours as needed for fevers aches and pains. Is patient prescribed a controlled substance at d/c from ED?: No Referrals: Albert Khan MD [Primary Care Provider] - 1-2 days Time of Disposition: 16:34
[2021-05-02] MEDS ORDERED: CASIRIVIMAB (REGN10933) (EUA) 600 MG, IMDEVIMAB (REGN10987) (EUA) 600 MG in SODIUM CHLO... IVPB ONE (17:30)
[2021-05-02] MEDS ORDERED: SODIUM CHLORIDE 0.9% 50 ML IVPB ONE (18:00)
[2021-05-02 19:04] VITALS: BP 127/62; PULSE 77
== END 2021-05-02 19:04 | disposition home or self-care (01) ==
LOC: EC 15:11
DX: U07.1 COVID-19 (principal); E11.9 Type 2 diabetes mellitus without complications; F25.9 Schizoaffective disorder, unspecified; Z79.84 Long term (current) use of oral hypoglycemic drugs; Z88.0 Allergy status to penicillin; Z87.891 Personal history of nicotine dependence
CPT/HCPCS: 99283; 87635; 71046; Q0244

== ENCOUNTER 2021-07-20 20:24 | Inpatient (IN) | payer MEDICARE, MEDICAID ==
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
[2021-07-21] MEDS ORDERED: LORazepam 1 MG TAB PO PRN (03:58)
[2021-07-21] MEDS ORDERED: MAG HYDROX/AL HYDROX/SIMETH 30 ML CUP PO PRN (03:58)
[2021-07-21] MEDS ORDERED: HALOPERIDOL LACTATE 5 MG/ML 1 ML VIAL IM PRN (03:58)
[2021-07-21] MEDS ORDERED: MAGNESIUM HYDROXIDE 2,400 MG/10 ML CUP PO PRN (03:58)
[2021-07-21] MEDS ORDERED: ACETAMINOPHEN TAB 325 MG TAB PO PRN (03:58)
[2021-07-21] MEDS ORDERED: LORazepam 2 MG/ML INJ IM PRN (04:03)
[2021-07-21] MEDS ORDERED: haloperidoL 5 MG TAB PO PRN (04:04)
[2021-07-21] MEDS: DIVALPROEX ER 500 MG TAB.ER.24H PO SCH ×2 (08:07→21:09)
[2021-07-21] MEDS: FLUoxetine HCL 10 MG CAP PO SCH (08:08)
[2021-07-21] MEDS: metFORMIN 500 MG TAB PO SCH ×2 (08:08→21:09)
[2021-07-21] MEDS: lamoTRIgine 100 MG TAB PO SCH (08:08)
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
[2021-07-21] MEDS ORDERED: OLANZapine 7.5 MG TAB PO SCH (21:00)
[2021-07-21] MEDS ORDERED: DIVALPROEX ER 250 MG TAB.ER.24H PO SCH (21:00)
[2021-07-21] MEDS: cloNIDine HCL 0.2 MG TAB PO SCH (21:09)
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
[2021-07-22] MEDS: lamoTRIgine 100 MG TAB PO SCH (07:48)
[2021-07-22] MEDS: FLUoxetine HCL 10 MG CAP PO SCH (07:48)
[2021-07-22] MEDS: metFORMIN 500 MG TAB PO SCH ×2 (07:48→20:02)
[2021-07-22] MEDS: DIVALPROEX ER 500 MG TAB.ER.24H PO SCH ×2 (07:48→20:02)
[2021-07-22 08:41] LABS: ALT 27 U/L (4-49); AST 31 U/L (17-59); African American GFR (CKD) >90 (>60 ml/min/1.73 sqM); Albumin 4.6 g/dL (3.5-5.0); Alkaline Phosphatase 69 U/L (38-126); Anion Gap 7 mmol/L; Blood Urea Nitrogen 14 mg/dL (9-20); Calcium 9.9 mg/dL (8.4-10.2); Carbon Dioxide 30 mmol/L (22-30); Chloride 105 mmol/L (98-107); Glucose 114 mg/dL (74-99); Non-African American GFR(CKD) >90 (>60 ml/min/1.73 sqM); Potassium 4.5 mmol/L (3.5-5.1); Sodium 142 mmol/L (137-145); Total Bilirubin 0.6 mg/dL (0.2-1.3); Total Protein 7.6 g/dL (6.3-8.2)
[2021-07-22 08:54] LABS: Basophils % (A) 0 %; Eosinophils # (A) 0.3 k/uL (0-0.7); Eosinophils % (A) 4 %; HCT 49.3 % (39.0-53.0); HGB 16.4 gm/dL (13.0-17.5); Lymphocytes # (A) 2.5 k/uL (1.0-4.8); Lymphocytes % (A) 36 %; MCH 28.7 pg (25.0-35.0); MCHC 33.2 g/dL (31.0-37.0); MCV 86.3 fL (80.0-100.0); Mean Platelet Volume 9.8; Monocytes # (A) 0.7 k/uL (0-1.0); Monocytes % (A) 9 %; Neutrophils # (A) 3.3 k/uL (1.3-7.7); Neutrophils % (A) 48 %; Platelet Count 228 k/uL (150-450); RBC 5.71 m/uL (4.30-5.90); RDW 13.3 % (11.5-15.5)
[2021-07-22] MEDS ORDERED: BENZOCAINE/MENTHOL LOZENG 1 EACH LOZENGE MUCOUS MEM PRN (12:38)
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
[2021-07-22 17:35] LABS: Glucose,Whole Blood 92 mg/dL (75-99)
[2021-07-22] MEDS: cloNIDine HCL 0.2 MG TAB PO SCH (20:02)
[2021-07-22] MEDS ORDERED: PALIPERIDONE 3 MG TAB.ER.24 PO SCH (21:00)
[2021-07-22 21:53] LABS: Appearance,Urine Clear (Clear); Bilirubin,Urine Negative (Negative); Blood,Urine Negative (Negative); Color,Urine Yellow; Glucose,Urine (UA) Negative (Negative); Ketones,Urine Trace (Negative); Leukocyte Esterase,Urine Negative (Negative); Nitrite,Urine Negative (Negative); Protein,Urine Negative (Negative); Specific Gravity,Urine 1.018 (1.001-1.035); Urobilinogen,Urine <2.0 mg/dL (<2.0)
[2021-07-23] MEDS: DIVALPROEX ER 500 MG TAB.ER.24H PO SCH ×2 (07:54→21:01)
[2021-07-23] MEDS: metFORMIN 500 MG TAB PO SCH ×2 (07:54→21:01)
[2021-07-23] MEDS: lamoTRIgine 100 MG TAB PO SCH (07:55)
[2021-07-23] MEDS ORDERED: PARoxetine 20 MG TAB PO SCH (09:00)
[2021-07-23 10:33] LABS: Urine Alcohol Negative (Negative); Urine Barbiturate Negative (Negative); Urine Cocaine Negative (Negative); Urine Methadone Negative (Negative); Urine Opiates Negative (Negative); Urine Phencyclidine Negative (Negative)
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
[2021-07-23] MEDS: PALIPERIDONE 6 MG TAB.ER.24 PO SCH (21:01)
[2021-07-23] MEDS: cloNIDine HCL 0.2 MG TAB PO SCH (21:01)
[2021-07-24] MEDS: PARoxetine 10 MG TAB PO SCH (08:46)
[2021-07-24] MEDS: metFORMIN 500 MG TAB PO SCH ×2 (08:46→20:26)
[2021-07-24] MEDS: lamoTRIgine 100 MG TAB PO SCH (08:46)
[2021-07-24] MEDS: DIVALPROEX ER 500 MG TAB.ER.24H PO SCH ×2 (08:46→20:26)
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
[2021-07-24] MEDS: cloNIDine HCL 0.2 MG TAB PO SCH (20:26)
[2021-07-24] MEDS: PALIPERIDONE 6 MG TAB.ER.24 PO SCH (20:26)
[2021-07-25 07:14] VITALS: PULSE 80
[2021-07-25] MEDS: lamoTRIgine 100 MG TAB PO SCH (08:30)
[2021-07-25] MEDS: PARoxetine 10 MG TAB PO SCH (08:30)
[2021-07-25] MEDS: metFORMIN 500 MG TAB PO SCH ×2 (08:31→20:30)
[2021-07-25] MEDS: DIVALPROEX ER 500 MG TAB.ER.24H PO SCH ×2 (08:31→20:30)
[2021-07-25] MEDS ORDERED: PALIPERIDONE IM 234 MG/1.5 ML SYG IM STA (10:59)
--- NOTE | 2021-07-25 11:06 | P.PN ---
Progress Note - Text Progress Note Date: 07/25/21 Interval History: Patient was seen wandering the hallways and was directable and agreeable to speak with ghost writer in the office. The patient is currently not reporting any significant psychiatric pathology at this time. He is currently not reporting any suicidal or homicidal ideation, intention, and/or plan. Reports no auditory or visualizations. He reports no paranoia or other delusions. The patient has been adherent with his medications and is not endorsing any significant side effects at this time. He is agreeable to the transition to Invega Sustenna. The patient reports that he feels like he is able to respond more appropriately to what is asked of him that he is able to think clearer. Mental Status Exam: General Appearance: Patient appears to be stated age is alert, directable, and cooperative. Behavior: Patient is calmly seated without any agitated behavior. Eye contact is fair. Speech: Patient's speech is fluent and nonpressured. Speech with mild slur. Mood/Affect: Mood is "feeling really good" affect is bright and childlike Suicidality/Homicidality: Currently not reporting any suicidal or homicidal ideation. Perceptions: Patient denies any visual hallucinations and denies any auditory hallucinations Though content/process: No reports of paranoia at this time. Memory and concentration: AOX3, grossly intact for the purposes of this session Judgment and insight: Improving mildly Vital Signs Temp 98.4 F 07/25/21 07:13 Pulse 80 07/25/21 07:13 Resp 16 07/25/21 07:13 BP 130/78 07/25/21 07:13 Pulse Ox 99 07/25/21 07:13 Laboratory Results - Last 24 Hours 07/25/21 06:49 Valproic Acid 78.1 Assessment Bipolar disorder, mixed, with psychotic features Antisocial personality disorder Plan: -Patient continues to meet criteria for inpatient psychiatric admission for symptom stabilization and safety. Patient and his guardian has signed adult voluntary form and medication consent and was placed in patient's chart. -Medications: Administer Invega Sustenna 234 mg IM today. Second loading dose of 156 mg IM will be due on 08/01/2021. Continue Paxil 30 mg daily for management depression/anxiety/hypersexuality. Continue Catapres 0.2 mg by mouth at bedtime for PTSD Continue Depakote 500 mg by mouth every morning and 1000 by mouth at bedtime for management of mood stabilization. Depakote level 78.1. Continue Lamictal 100 mg by mouth daily for mood stabilization -When necessary Ativan and Haldol for agitation/aggression. -SW on board for discharge planning. Encouraged the patient to participate in milieu.
[2021-07-25] MEDS: cloNIDine HCL 0.2 MG TAB PO SCH (20:30)
[2021-07-25] MEDS ORDERED: PALIPERIDONE 3 MG TAB.ER.24 PO SCH (21:00)
[2021-07-26 05:18] VITALS: BP 129/76; RESP 18; TEMP 96.4
[2021-07-26] MEDS: PARoxetine 10 MG TAB PO SCH (07:49)
[2021-07-26] MEDS: metFORMIN 500 MG TAB PO SCH (07:50)
[2021-07-26] MEDS: DIVALPROEX ER 500 MG TAB.ER.24H PO SCH (07:50)
[2021-07-26] MEDS: lamoTRIgine 100 MG TAB PO SCH (07:50)
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
[2021-08-01] MEDS ORDERED: PALIPERIDONE IM 156 MG/ML SYG IM SCH (09:00)
== END 2021-07-26 16:10 | disposition home or self-care (01) | DRG 885 ==
LOC: EC 20:24 → 3MHU 07-21 03:28
PROVIDERS: ADMIT Psychiatry & Neurology Psychiatry; ATTEND Psychiatry & Neurology Psychiatry
DX: F31.64 Bipolar disorder, current episode mixed, severe, with psychotic features (principal); E11.9 Type 2 diabetes mellitus without complications; F43.10 Post-traumatic stress disorder, unspecified; F60.2 Antisocial personality disorder; F41.9 Anxiety disorder, unspecified; Z20.822 Contact with and (suspected) exposure to COVID-19; Z79.84 Long term (current) use of oral hypoglycemic drugs; Z79.899 Other long term (current) drug therapy; Z88.0 Allergy status to penicillin; Z91.030 Bee allergy status; Z98.890 Other specified postprocedural states; Z87.891 Personal history of nicotine dependence
CPT/HCPCS: 80053; 80164; 80306; 81003; 82075; 83036; 84443; 85025; 87635; 99285

== ENCOUNTER → 2021-12-18 | Outpatient (CLI) | payer MEDICARE, MEDICAID ==
[2021-12-18 10:49] LABS: Chol/HDL Ratio 3.21 Ratio; LDL Cholesterol,Calculated 75.6 mg/dL (0.0-131.0)
[2021-12-18 12:14] LABS: ALT 23 U/L (10-49); AST 24 U/L (14-35); Albumin 4.6 g/dL (3.8-4.9); Albumin/Globulin Ratio 1.92 (1.60-3.17); Alkaline Phosphatase 58 U/L (41-126); Bilirubin, Conjugated <0.20 mg/dL (0.20-0.40); Globulin 2.4 g/dL (1.6-3.3); Glucose 132 mg/dL (70-110)
== END | disposition home or self-care (01) ==
LOC: LABWHC1 07:41
PROVIDERS: ATTEND Psychiatry & Neurology Psychiatry
DX: F25.1 Schizoaffective disorder, depressive type (principal); Z79.899 Other long term (current) drug therapy
CPT/HCPCS: 36415; 80061; 80076; 80164; 80175; 82947; 83036; 84439; 84443

== ENCOUNTER 2022-06-11 09:02 | Emergency (ER) | payer MEDICARE, OTHER ==
--- NOTE | 2022-06-11 09:23 | ED ---
Lower Extremity Injury HPI - General Chief Complaint: Extremity Injury, Lower Stated Complaint: knee injury Time Seen by Provider: 06/11/22 09:09 Source: patient, RN notes reviewed Mode of arrival: ambulatory Limitations: no limitations - History of Present Illness Initial Comments: This a 26-year-old male presents emergency Department chief complaint left knee pain, injury. Patient states that he was on that truck landing in which he states until he was not probably down he states he fell between the hole. Patient states he has abrasions on his knee, swelling and pain. He is able to bear weight but states is painful. He states do not fall into the ground. Patient states his tetanus is up-to-date no paresthesias no other complaints. - Related Data Previous Rx's Medication Instructions Recorded Divalproex ER [Depakote ER] 1,000 mg PO HS 30 Days tab 07/26/21 Divalproex ER [Depakote ER] 500 mg PO DAILY 30 Days tab 07/26/21 PARoxetine [Paxil] 30 mg PO DAILY 30 Days tab 07/26/21 Paliperidone IM [Invega Sustenna] 156 mg IM QMONTHLY #1 each 07/26/21 cloNIDine HCL [Catapres] 0.2 mg PO HS 30 Days tab 07/26/21 lamoTRIgine [LaMICtal] 100 mg PO DAILY 30 Days tab 07/26/21 metFORMIN HCL [Glucophage] 1,000 mg PO BID 30 Days tab 07/26/21 Ibuprofen [Motrin] 600 mg PO Q8HR PRN #20 tab 06/11/22 Allergies Allergy/AdvReac Type Severity Reaction Status Date / Time Penicillins Allergy Rash/Hives Verified 06/11/22 09:06 venom-honey bee Allergy Swelling Verified 06/11/22 09:06 [bee venom (honey bee)] Review of Systems ROS Statement: Those systems with pertinent positive or pertinent negative responses have been documented in the HPI. ROS Other: All systems not noted in ROS Statement are negative. Past Medical History Past Medical History: Diabetes Mellitus History of Any Multi-Drug Resistant Organisms: None Reported Past Surgical History: No Surgical Hx Reported Additional Past Surgical History / Comment(s): extra thumb removed from right hand. wisdom teeth. eustachian tubes. Past Psychological History: Schizoaffective Disorder Smoking Status: Former smoker Past Alcohol Use History: None Reported Past Drug Use History: None Reported General Exam Limitations: no limitations General appearance: alert, in no apparent distress Head exam: Present: atraumatic, normocephalic, normal inspection Eye exam: Present: normal appearance, PERRL, EOMI. Absent: scleral icterus, conjunctival injection, periorbital swelling ENT exam: Present: normal exam, normal oropharynx, mucous membranes moist, TM's normal bilaterally Neck exam: Present: normal inspection, full ROM. Absent: tenderness, meningismus, lymphadenopathy Respiratory exam: Present: normal lung sounds bilaterally. Absent: respiratory distress, wheezes, rales, rhonchi, stridor Cardiovascular Exam: Present: regular rate, normal rhythm, normal heart sounds. Absent: systolic murmur, diastolic murmur, rubs, gallop, clicks Extremities exam: Present: other (Left knee noted swelling, abrasions on medial and lateral aspect, no active bleeding no significant ecchymosis patient does have full range of motion a laxity noted no tenderness above or below the left knee) Neurological exam: Present: alert Skin exam: Present: warm, dry, intact, normal color. Absent: rash Course Vital Signs 06/11/22 09:05 Temperature 98 F Pulse Rate 101 H Respiratory 18 Rate Blood Pressure 142/88 O2 Sat by Pulse 99 Oximetry Medical Decision Making - Medical Decision Making Was pt. sent in by a medical professional or institution ([facility], PRECISION FARMING SPECIALIST, urgent care, hospital, or intermediate...) When possible be specific @ -[No] Did you speak to anyone other than the patient for history (EMS, parent, family, police, friend...)? What history was obtained from this source @ -[No] Did you review nursing and triage notes (agree or disagree)? Why? @ -[I reviewed and agree with nursing and triage notes] Were old charts reviewed (outside hosp., previous admission, EMS record, old EKG, old radiological studies, urgent care reports/EKG's, intermediate records)? Report findings @ -[No old charts were reviewed] Differential Diagnosis (chest pain, altered mental status, abdominal pain women, abdominal pain men, vaginal bleeding, weakness, fever, dyspnea, syncope, headache, dizziness, GI bleed, back pain, seizure, CVA, palpatations, mental health)? @ -Knee sprain, knee strain, knee contusion, leg abrasion, internal derangement left knee, this list is not all inclusive EKG interpreted by me (3pts min.). @ -[None X-rays interpreted by me (1pt min.). @ -Left knee x-ray does not show any acute osseous lesion, fracture or abnormality CT interpreted by me (1pt min.). @ -[None done] U/S interpreted by me (1pt. min.). @ -[None done] What testing was considered but not performed or refused? (CT, X-rays, U/S, labs)? Why? @ -[None] What meds were considered but not given or refused? Why? @ -[None] Did you discuss the management of the patient with other professionals (pr ofessionals i.e. , PA, PRECISION FARMING SPECIALIST, lab, RT, psych nurse, elementary school social worker, type inspector, teacher, multisensor intelligence officer, case operator)? Give summary @ -[No] Was smoking cessation discussed for >3mins.? @ -[No] Was critical care preformed (if so, how long)? @ -[No] Were there social determinants of health that impacted care today? How? (Homelessness, low income, unemployed, alcoholism, drug addiction, transportation, low edu. Level, literacy, decrease access to med. care, fpc, rehab)? @ -[No] Was there de-escalation of care discussed even if they declined (Discuss DNR or withdrawal of care, Hospice)? DNR status @ -[No] What co-morbidities impacted this encounter? (DM, HTN, Smoking, COPD, CAD, Cancer, CVA, ARF, Chemo, Hep., AIDS, mental health diagnosis, sleep apnea, morbid obesity)? @ -[None] Was patient admitted / discharged? Hospital course, mention meds given and route, prescriptions, significant lab abnormalities, going to OR and other pertinent info. @ -Discharged x-ray does not show any acute process, patient has knee abrasion up-to-date on tetanus, knee contusion will be discharged in stable condition Undiagnosed new problem with uncertain prognosis? @ -[No] Drug Therapy requiring intensive monitoring for toxicity (Heparin, Nitro, Insulin, Cardizem)? @ -[No] Were any procedures done? @ -[No] Diagnosis/symptom? @ -Knee contusion Acute, or Chronic, or Acute on Chronic? @ -acute Uncomplicated (without systemic symptoms) or Complicated (systemic symptoms)? @ -Uncomplicated Side effects of treatment? @ -[No] Exacerbation, Progression, or Severe Exacerbation? @ -[No] Poses a threat to life or bodily function? How? (Chest pain, USA, CT, pneumonia, PE, COPD, DKA, ARF, appy, cholecystitis, CVA, Diverticulitis, Homicidal, Suicidal, threat to staff... and all critical care pts) @ -[No] Diagnosis/symptom? @ -Knee abrasion Acute, or Chronic, or Acute on Chronic? @ -Acute Uncomplicated (without systemic symptoms) or Complicated (systemic symptoms)? @ -Updated Side effects of treatment? @ -[none] Exacerbation, Progression, or Severe Exacerbation] @ -[no] Poses a threat to life or bodily function? @ -[no] Disposition Clinical Impression: Abrasion of left knee, Contusion of left knee Disposition: HOME SELF-CARE Condition: Stable Instructions (If sedation given, give patient instructions): Knee Pain (ED) Additional Instructions: Please return to the Emergency Department if symptoms worsen or any other concerns. Prescriptions: Ibuprofen [Motrin] 600 mg PO Q8HR PRN #20 tab PRN Reason: Pain Is patient prescribed a controlled substance at d/c from ED?: No Referrals: Albert Khan MD [Primary Care Provider] - 1-2 days Time of Disposition: 10:10
[2022-06-11 09:31] VITALS: BP 142/88; PULSE 101; RESP 18; TEMP 98
--- NOTE | 2022-06-11 10:03 | XR ---
EXAMINATION TYPE: XR knee complete LT DATE OF EXAM: 06/11/2022 COMPARISON: NONE HISTORY: Pain TECHNIQUE: Three views are submitted. FINDINGS: Joint spaces are preserved. Osseous structures are intact. No acute fracture seen. IMPRESSION: 1. No acute fracture or dislocation.
== END 2022-06-11 10:22 | disposition home or self-care (01) ==
LOC: EC 09:02
DX: S80.02XA Contusion of left knee, initial encounter (principal); E11.9 Type 2 diabetes mellitus without complications; Z87.891 Personal history of nicotine dependence; Z88.0 Allergy status to penicillin; Z91.030 Bee allergy status; W18.42XA Slipping, tripping and stumbling without falling due to stepping into hole or opening, initial encounter
CPT/HCPCS: 99283

== ENCOUNTER 2022-06-27 17:11 | Emergency (ER) | payer MEDICARE, OTHER ==
[2022-06-27 17:16] VITALS: BP 130/88; PULSE 103; RESP 20; TEMP 98
[2022-06-27] MEDS ORDERED: CLINDAMYCIN 150 MG CAP PO STA (17:42)
--- NOTE | 2022-06-27 17:47 | ED ---
Extremity Problem HPI - General Chief complaint: Extremity Problem,Nontraumatic Stated complaint: revisit - wound lt leg Time Seen by Provider: 06/27/22 17:20 Source: patient Mode of arrival: ambulatory Limitations: no limitations - History of Present Illness Initial comments: Who presents for revisit of left knee injury. Patient was evaluated on 06/11 w here he was found to have knee contusion and abrasion. Patient states over the past few days he has noticed increased swelling redness and pain over the inside of his knee. No new injury. He has no pain with knee movement or walking. Denies fever, chills, nausea, vomiting. - Related Data Home Medications Medication Instructions Recorded Confirmed PARoxetine HCL 30 mg PO DAILY 06/11/22 06/11/22 clonazePAM [KlonoPIN] 0.5 mg PO HS PRN 06/11/22 06/11/22 fluPHENAZine decanoate [Prolixin 25 mg IM WE 06/11/22 06/11/22 Decanoate] Previous Rx's Medication Instructions Recorded Divalproex ER [Depakote ER] 1,000 mg PO HS 30 Days tab 07/26/21 lamoTRIgine [LaMICtal] 100 mg PO DAILY 30 Days tab 07/26/21 Ibuprofen [Motrin] 600 mg PO Q8HR PRN #20 tab 06/11/22 Clindamycin [Cleocin] 450 mg PO Q8H #45 cap 06/27/22 Allergies Allergy/AdvReac Type Severity Reaction Status Date / Time Penicillins Allergy Rash/Hives Verified 06/27/22 17:16 venom-honey bee Allergy Swelling Verified 06/27/22 17:16 [bee venom (honey bee)] Review of Systems ROS Statement: Those systems with pertinent positive or pertinent negative responses have been documented in the HPI. ROS Other: All systems not noted in ROS Statement are negative. Past Medical History Past Medical History: Diabetes Mellitus History of Any Multi-Drug Resistant Organisms: None Reported Past Surgical History: No Surgical Hx Reported Additional Past Surgical History / Comment(s): extra thumb removed from right hand. wisdom teeth. eustachian tubes. Past Psychological History: Schizoaffective Disorder Smoking Status: Former smoker Past Alcohol Use History: None Reported Past Drug Use History: None Reported General Exam Limitations: no limitations Eye exam: Present: normal appearance, PERRL, EOMI. Absent: scleral icterus, conjunctival injection, periorbital swelling Respiratory exam: Present: normal lung sounds bilaterally. Absent: respiratory distress, wheezes, rales, rhonchi, stridor Cardiovascular Exam: Present: regular rate, normal rhythm, normal heart sounds. Absent: systolic murmur, diastolic murmur, rubs, gallop, clicks Extremities exam: Present: other (Medial lower right knee abrasion infected with 1 cm surrounding erythema, warmth, blanching. No fluctuance or induration. No pain with knee flexion or extension. Capillary refill less than 2 seconds.) Neurological exam: Present: alert, oriented X3, CN II-XII intact Psychiatric exam: Present: normal affect, normal mood Skin exam: Present: warm, dry, intact, normal color. Absent: rash Course Vital Signs 06/27/22 17:14 Temperature 98 F Pulse Rate 103 H Respiratory 20 Rate Blood Pressure 130/88 O2 Sat by Pulse 99 Oximetry Medical Decision Making - Medical Decision Making Was pt. sent in by a medical professional or institution (, PA, FLAT LOCKER, urgent care, hospital, or penitentiary...) When possible be specific @ -No Did you speak to anyone other than the patient for history (EMS, parent, family, police, friend...)? What history was obtained from this source @ -No Did you review nursing and triage notes (agree or disagree)? Why? @ -I reviewed and agree with nursing and triage notes Were old charts reviewed (outside hosp., previous admission, EMS record, old EKG, old radiological studies, urgent care reports/EKG's, penitentiary records)? Report findings @ Yes, reviewed previous visit from 06/11. Right knee x-ray negative for acute process. Differential Diagnosis (chest pain, altered mental status, abdominal pain women, abdominal pain men, vaginal bleeding, weakness, fever, dyspnea, syncope, headache, dizziness, GI bleed, back pain, seizure, CVA, palpatations, mental health)? @ -Knee sprain, knee fracture, cellulitis EKG interpreted by me (3pts min.). @ -As above X-rays interpreted by me (1pt min.). @ -None done CT interpreted by me (1pt min.). @ -None done U/S interpreted by me (1pt. min.). @ -None done What testing was considered but not performed or refused? (CT, X-rays, U/S, labs)? Why? @ -None What meds were considered but not given or refused? Why? @ -None Did you discuss the management of the patient with other professionals (professionals i.e. , PA, FLAT LOCKER, lab, RT, psych nurse, child welfare social worker, temperature inspector, teacher, aoc plans intelligence officer, patient case manager)? Give summary @ -No Was smoking cessation discussed for >3mins.? @ -No Was critical care preformed (if so, how long)? @ -No Were there social determinants of health that impacted care today? How? (Homelessness, low income, unemployed, alcoholism, drug addiction, transportation, low edu. Level, literacy, decrease access to med. care, half-way, rehab)? @ -No Was there de-escalation of care discussed even if they declined (Discuss DNR or withdrawal of care, Hospice)? DNR status @ -No What co-morbidities impacted this encounter? (DM, HTN, Smoking, COPD, CAD, Cancer, CVA, ARF, Chemo, Hep., AIDS, mental health diagnosis, sleep apnea, morbid obesity)? @ -None Was patient admitted / discharged? Hospital course, mention meds given and route, prescriptions, significant lab abnormalities, going to OR and other pertinent info. @ Patient found to have infection of right inner knee abrasion with mild cellulitis. No abscess, no systemic symptoms. Patient denies history of MRSA. He will be discharged with clindamycin and instruction to follow up with his primary care provider. Undiagnosed new problem with uncertain prognosis? @ -No Drug Therapy requiring intensive monitoring for toxicity (Heparin, Nitro, Insulin, Cardizem)? @ -No Were any procedures done? @ -No Diagnosis/symptom? @ Cellulitis left knee Acute, or Chronic, or Acute on Chronic? @ -Acute Uncomplicated (without systemic symptoms) or Complicated (systemic symptoms)? @ Uncomplicated Side effects of treatment? @ -[No] Exacerbation, Progression, or Severe Exacerbation? @ -[No] Poses a threat to life or bodily function? How? (Chest pain, [place], [place], pneumonia, PE, COPD, DKA, ARF, appy, cholecystitis, CVA, Diverticulitis, Homicidal, Suicidal, threat to staff... and all critical care pts) @ -[No] Dr. Graham is my attending Disposition Clinical Impression: Cellulitis of left knee Disposition: HOME SELF-CARE Condition: Good Additional Instructions: Take medication as directed. This medication may cause diarrhea. Follow-up with primary care provider in one to 2 days. Return to the emergency department if you experience new, concerning, or worsening symptoms. Prescriptions: Clindamycin [Cleocin] 450 mg PO Q8H #45 cap Is patient prescribed a controlled substance at d/c from ED?: No Referrals: Albert Khan MD [Primary Care Provider] - 1-2 days
== END 2022-06-27 17:59 | disposition home or self-care (01) ==
LOC: EC 17:11
DX: L03.116 Cellulitis of left lower limb (principal); E11.9 Type 2 diabetes mellitus without complications; Z87.891 Personal history of nicotine dependence; Z88.0 Allergy status to penicillin; Z91.030 Bee allergy status
CPT/HCPCS: 99283

== ENCOUNTER 2022-08-15 15:43 | Emergency (ER) | payer MEDICARE, OTHER ==
[2022-08-15 15:50] VITALS: BP 164/84; PULSE 113; RESP 20; TEMP 98.4
--- NOTE | 2022-08-15 16:02 | ED ---
Psych HPI - General Chief Complaint: Psychiatric Symptoms Stated Complaint: Mental Health Time Seen by Provider: 08/15/22 15:53 Source: patient Mode of arrival: ambulatory - History of Present Illness Initial Comments: This patient is a 27-year-old man who presents with complaint that he has been having suicidal ideation. states he has had a few months of worsening of depression but things have really gotten bad for about the past 3 days she has been having recurrent thoughts of suicide and states that he is considered a number of methods. Patient states he has been compliant with the treatment through [facility] but it doesn't seem to be helping. MD Complaint: suicidal ideation, feels depressed Onset/Timin -: days(s) Associated Psychiatric Symptoms: depression History of same: Yes Quality: getting worse Improves With: none Worsens With: none Associated Symptoms: denies other symptoms - Related Data Home Medications Medication Instructions Recorded Confirmed PARoxetine HCL 30 mg PO DAILY 06/11/22 06/11/22 clonazePAM [KlonoPIN] 0.5 mg PO HS PRN 06/11/22 06/11/22 fluPHENAZine decanoate [Prolixin 25 mg IM WE 06/11/22 06/11/22 Decanoate] Previous Rx's Medication Instructions Recorded Divalproex ER [Depakote ER] 1,000 mg PO HS 30 Days tab 07/26/21 lamoTRIgine [LaMICtal] 100 mg PO DAILY 30 Days tab 07/26/21 Ibuprofen [Motrin] 600 mg PO Q8HR PRN #20 tab 06/11/22 Clindamycin [Cleocin] 450 mg PO Q8H #45 cap 06/27/22 Allergies Allergy/AdvReac Type Severity Reaction Status Date / Time Penicillins Allergy Rash/Hives Verified 08/15/22 15:50 venom-honey bee Allergy Swelling Verified 08/15/22 15:50 [bee venom (honey bee)] Review of Systems ROS Statement: Those systems with pertinent positive or pertinent negative responses have been documented in the HPI. ROS Other: All systems not noted in ROS Statement are negative. Constitutional: Denies: fever, chills Respiratory: Denies: cough, dyspnea Cardiovascular: Denies: chest pain, palpitations Gastrointestinal: Denies: abdominal pain, vomiting, diarrhea Genitourinary: Denies: dysuria, hematuria Musculoskeletal: Denies: back pain Skin: Denies: rash Neurological: Denies: headache, weakness Psychiatric: Reports: depression, suicidal thoughts. Denies: auditory hallucinations, visual hallucinations, homicidal thoughts Past Medical History Past Medical History: Diabetes Mellitus History of Any Multi-Drug Resistant Organisms: None Reported Past Surgical History: No Surgical Hx Reported Additional Past Surgical History / Comment(s): extra thumb removed from right hand. wisdom teeth. eustachian tubes. Past Psychological History: Schizoaffective Disorder Smoking Status: Former smoker Past Alcohol Use History: None Reported Past Drug Use History: None Reported General Exam Limitations: no limitations General appearance: alert, in no apparent distress Head exam: Present: atraumatic, normocephalic Eye exam: Present: normal appearance. Absent: scleral icterus, conjunctival injection ENT exam: Present: normal exam, normal oropharynx Neck exam: Present: normal inspection, full ROM Respiratory exam: Present: normal lung sounds bilaterally. Absent: respiratory distress, wheezes, rales, rhonchi, stridor Cardiovascular Exam: Present: regular rate, normal rhythm, normal heart sounds. Absent: systolic murmur, diastolic murmur, rubs, gallop GI/Abdominal exam: Present: soft. Absent: distended, tenderness, guarding, rebound, rigid, mass Extremities exam: Present: normal inspection, normal capillary refill. Absent: pedal edema, calf tenderness Back exam: Present: normal inspection. Absent: CVA tenderness (R), CVA tenderness (L) Neurological exam: Present: alert, oriented X3 Psychiatric exam: Present: normal affect, normal mood, suicidal ideation. Absent: agitated, anxious, flat affect, homicidal ideation Skin exam: Present: warm, dry, intact, normal color. Absent: rash Course Vital Signs 08/15/22 15:47 Temperature 98.4 F Pulse Rate 113 H Respiratory 20 Rate Blood Pressure 164/84 O2 Sat by Pulse 99 Oximetry Medical Decision Making - Medical Decision Making Patient is 27-year-old man presenting with psychiatric complaint. He is medically cleared and seen by EPS. EPS obtained additional history as well as speaking with patient's family and the patient subsequently stated that he was upset about restrictions on his game use and will contract for safety. Was pt. sent in by a medical professional or institution (, PA, POULTRY HUSBANDRY TEACHER, urgent care, hospital, or longterm...) When possible be specific @ -[No] Did you speak to anyone other than the patient for history (EMS, parent, family, police, friend...)? What history was obtained from this source @ -[No] Did you review nursing and triage notes (agree or disagree)? Why? @ -[I reviewed and agree with nursing and triage notes] Were old charts reviewed (outside hosp., previous admission, EMS record, old EKG, old radiological studies, urgent care reports/EKG's, longterm records)? Report findings @ -[No old charts were reviewed] Differential Diagnosis (chest pain, altered mental status, abdominal pain women, abdominal pain men, vaginal bleeding, weakness, fever, dyspnea, syncope, headache, dizziness, GI bleed, back pain, seizure, CVA, palpatations, mental health, musculoskeletal)? @ -[not applicable] EKG interpreted by me (3pts min.). @ -[ X-rays interpreted by me (1pt min.). @ -[None done] CT interpreted by me (1pt min.). @ -[None done] U/S interpreted by me (1pt. min.). @ -[None done] What testing was considered but not performed or refused? (CT, X-rays, U/S, labs)? Why? @ -[None] What meds were considered but not given or refused? Why? @ -[None] Did you discuss the management of the patient with other professionals (professionals i.e. , PA, POULTRY HUSBANDRY TEACHER, lab, RT, psych nurse, social science manager, farm helper, teacher, chief knowledge officer, vocational case manager)? Give summary @ -[EPS Was smoking cessation discussed for >3mins.? @ -[No] Was critical care preformed (if so, how long)? @ -[No] Were there social determinants of health that impacted care today? How? (Homelessness, low income, unemployed, alcoholism, drug addiction, tra nsportation, low edu. Level, literacy, decrease access to med. care, correction, rehab)? @ -[No] Was there de-escalation of care discussed even if they declined (Discuss DNR or withdrawal of care, Hospice)? DNR status @ -[No] What co-morbidities impacted this encounter? (DM, HTN, Smoking, COPD, CAD, Cancer, CVA, ARF, Chemo, Hep., AIDS, mental health diagnosis, sleep apnea, morbid obesity)? @ -[N mental health diagnosis Was patient admitted / discharged? Hospital course, mention meds given and route, prescriptions, significant lab abnormalities, going to OR and other pertinent info. @ -[Discharged Undiagnosed new problem with uncertain prognosis? @ -[No] Drug Therapy requiring intensive monitoring for toxicity (Heparin, Nitro, Insulin, Cardizem)? @ -[No] Were any procedures done? @ -[No] Diagnosis/symptom? @ -[Acute mood disorder Acute, or Chronic, or Acute on Chronic? @ -[Acute on chronic Uncomplicated (without systemic symptoms) or Complicated (systemic symptoms)? @ -[Uncomplicated Side effects of treatment? @ -[No] Exacerbation, Progression, or Severe Exacerbation? @ -[No] Poses a threat to life or bodily function? How? (Chest pain, [place], [place], pneumonia, PE, COPD, DKA, ARF, appy, cholecystitis, CVA, Diverticulitis, Homicidal, Suicidal, threat to staff... and all critical care pts) @ -[No] Disposition Clinical Impression: Mood disorder Disposition: HOME SELF-CARE Condition: Good Instructions (If sedation given, give patient instructions): Mood Disorders (ED) Is patient prescribed a controlled substance at d/c from ED?: No Referrals: Nonstaff,Physician [Primary Care Provider] - 1-2 days
== END 2022-08-15 20:48 | disposition home or self-care (01) ==
LOC: EC 15:43
DX: F39 Unspecified mood [affective] disorder (principal); E11.9 Type 2 diabetes mellitus without complications; Z87.891 Personal history of nicotine dependence; Z88.0 Allergy status to penicillin; Z91.030 Bee allergy status; Z79.899 Other long term (current) drug therapy
CPT/HCPCS: 82075; 99284

== ENCOUNTER 2022-08-16 12:10 | Inpatient (IN) | payer MEDICARE, MEDICAID ==
--- NOTE | 2022-08-16 13:18 | ED ---
Psych HPI - General Chief Complaint: Psychiatric Symptoms Stated Complaint: mental health Time Seen by Provider: 08/16/22 12:30 Source: patient Mode of arrival: ambulatory - History of Present Illness Initial Comments: 27-year-old male presents to the emergency department in handcuffs. [place] police were alerted that he was going to jump into the water. Rafi hunter was seen in emergency room yesterday for suicidal thoughts and was sent home. States that his suicidal thoughts have continued. He has multiple plans to commit suicide. One of them was that he was going to jump into the water. He was stopped by police. Did not hurt himself. Brought into the emergency department for reevaluation. He denies drug or alcohol use. States that he has auditory and visual hallucinations telling him to harm himself. He did not take his medications today but took them last night. States his medications have not been working. He has been hospitalized several times for mental health. The last of which was one year ago. He denies homicidal ideations. No alleviating, resuscitating or modifying factors - Related Data Home Medications Medication Instructions Recorded Confirmed Melatonin 2 mg PO HS PRN 08/16/22 08/16/22 metFORMIN HCL ER [Glucophage XR] 500 mg PO BID 08/16/22 08/16/22 Previous Rx's Medication Instructions Recorded Divalproex ER [Depakote ER] 1,000 mg PO HS 30 Days #60 tab 08/21/22 [place] Carbonate 450 mg PO HS 30 Days #90 cap 08/21/22 PARoxetine [Paxil] 40 mg PO DAILY 30 Days #60 tab 08/21/22 fluPHENAZine decanoate [Prolixin 25 mg IM Q7DAYS #1 ml 08/21/22 Decanoate] lamoTRIgine [LaMICtal] 100 mg PO DAILY 30 Days #30 tab 08/21/22 Allergies Allergy/AdvReac Type Severity Reaction Status Date / Time Penicillins Allergy Rash/Hives Verified 08/16/22 17:30 venom-honey bee Allergy Swelling Verified 08/16/22 17:30 [bee venom (honey bee)] Review of Systems ROS Statement: Those systems with pertinent positive or pertinent negative responses have been documented in the HPI. ROS Other: All systems not noted in ROS Statement are negative. Past Medical History Past Medical History: Diabetes Mellitus History of Any Multi-Drug Resistant Organisms: None Reported Past Surgical History: No Surgical Hx Reported Additional Past Surgical History / Comment(s): extra thumb removed from right hand. wisdom teeth. eustachian tubes. Past Psychological History: Schizoaffective Disorder Smoking Status: Former smoker Past Alcohol Use History: None Reported Past Drug Use History: None Reported - Past Family History Mother Family Medical History: Diabetes Mellitus General Exam Limitations: no limitations General appearance: alert, in no apparent distress Head exam: Present: atraumatic, normocephalic, normal inspection Eye exam: Present: normal appearance, PERRL, EOMI. Absent: scleral icterus, conjunctival injection, periorbital swelling ENT exam: Present: normal exam, mucous membranes moist Neck exam: Present: normal inspection. Absent: tenderness, meningismus, lymphadenopathy Respiratory exam: Present: normal lung sounds bilaterally. Absent: respiratory distress, wheezes, rales, rhonchi, stridor Cardiovascular Exam: Present: regular rate, normal rhythm, normal heart sounds. Absent: systolic murmur, diastolic murmur, rubs, gallop, clicks GI/Abdominal exam: Present: soft, normal bowel sounds. Absent: distended, tend erness, guarding, rebound, rigid Extremities exam: Present: normal inspection, full ROM, normal capillary refill. Absent: tenderness, pedal edema, joint swelling, calf tenderness Back exam: Present: normal inspection Neurological exam: Present: alert, oriented X3, CN II-XII intact Psychiatric exam: Present: depressed, suicidal ideation Skin exam: Present: warm, dry, intact, normal color. Absent: rash Course Vital Signs 08/16/22 08/16/22 12:20 16:56 Temperature 98.0 F 98.0 F Pulse Rate 88 82 Respiratory 20 20 Rate Blood Pressure 138/80 132/80 O2 Sat by Pulse 98 98 Oximetry Medical Decision Making - Medical Decision Making Was pt. sent in by a medical professional or institution (, PA, PROJECT FINANCE ANALYST, urgent care, hospital, or intermediate...) When possible be specific @ -No Did you speak to anyone other than the patient for history (EMS, parent, family, police, friend...)? What history was obtained from this source @ -Police Did you review nursing and triage notes (agree or disagree)? Why? @ -I reviewed and agree with nursing and triage notes Were old charts reviewed (outside hosp., previous admission, EMS record, old EKG, old radiological studies, urgent care reports/EKG's, intermediate records)? Report findings @ -Reviewed yesterdays ED records Differential Diagnosis (chest pain, altered mental status, abdominal pain women, abdominal pain men, vaginal bleeding, weakness, fever, dyspnea, syncope, headache, dizziness, GI bleed, back pain, seizure, CVA, palpatations, mental health, musculoskeletal)? @ -suicidal ideations, depression, anxiety, substance abuse EKG interpreted by me (3pts min.). @ -As above X-rays interpreted by me (1pt min.). @ -None done CT interpreted by me (1pt min.). @ -None done U/S interpreted by me (1pt. min.). @ -None done What testing was considered but not performed or refused? (CT, X-rays, U/S, labs)? Why? @ -None What meds were considered but not given or refused? Why? @ -None Did you discuss the management of the patient with other professionals (professionals i.e. , PA, PROJECT FINANCE ANALYST, lab, RT, psych nurse, social work associate, munitions handler, teacher, staff command and control officer, employment case manager)? Give summary @ -EPS nurse Was smoking cessation discussed for >3mins.? @ -No Was critical care preformed (if so, how long)? @ -No Were there social determinants of health that impacted care today? How? (Homelessness, low income, unemployed, alcoholism, drug addiction, transportati on, low edu. Level, literacy, decrease access to med. care, residential, rehab)? @ -No Was there de-escalation of care discussed even if they declined (Discuss DNR or withdrawal of care, Hospice)? DNR status @ -No What co-morbidities impacted this encounter? (DM, HTN, Smoking, COPD, CAD, Cancer, CVA, ARF, Chemo, Hep., AIDS, mental health diagnosis, sleep apnea, morbid obesity)? @ -depression Was patient admitted / discharged? Hospital course, mention meds given and route, prescriptions, significant lab abnormalities, going to OR and other pertinent info. @ -Upon arrival patient is placed into room 13. A thorough history and physical exam was performed. EPS does evaluate the patient and feels that he needs to be admitted. Patient does sign himself in and is currently awaiting a bed on the floor Undiagnosed new problem with uncertain prognosis? @ -No Drug Therapy requiring intensive monitoring for toxicity (Heparin, Nitro, Insulin, Cardizem)? @ -No Were any procedures done? @ -No Diagnosis/symptom? @ -suicidal ideations Acute, or Chronic, or Acute on Chronic? @ -acute Uncomplicated (without systemic symptoms) or Complicated (systemic symptoms)? @ -complicated Side effects of treatment? @ -No Exacerbation, Progression, or Severe Exacerbation? @ -No Poses a threat to life or bodily function? How? (Chest pain, [place], [place], pneumonia, PE, COPD, DKA, ARF, appy, cholecystitis, CVA, Diverticulitis, Homicidal, Suicidal, threat to staff... and all critical care pts) @ -yes - Lab Data Result diagrams: 08/17/22 06:41 08/17/22 06:41 Lab Results 08/16/22 08/16/22 Range/Units 15:39 15:39 Urine Opiates Screen Not Detected (NotDetected) Ur Oxycodone Screen Not Detected (NotDetected) Urine Methadone Screen Not Detected (NotDetected) Ur Propoxyphene Screen Not Detected (NotDetected) Ur Barbiturates Screen Not Detected (NotDetected) U Tricyclic Antidepress Not Detected (NotDetected) Ur Phencyclidine Scrn Not Detected (NotDetected) Ur Amphetamines Screen Not Detected (NotDetected) U Methamphetamines Scrn Not Detected (NotDetected) U Benzodiazepines Scrn Not Detected (NotDetected) Urine Cocaine Screen Not Detected (NotDetected) U Marijuana (THC) Screen Not Detected (NotDetected) Coronavirus (PCR) Not Detected (Not Detectd) Disposition Clinical Impression: Mood disorder, Acute psychosis Disposition: TRANSFER TO PSYCH HOSP/UNIT Condition: Stable Is patient prescribed a controlled substance at d/c from ED?: No
[2022-08-16 16:32] LABS: Amphetamine Screen,Urine Not Detected (NotDetected); Barbiturate Screen,Urine Not Detected (NotDetected); Benzodiazepines Screen,Urine Not Detected (NotDetected); Cocaine Screen,Urine Not Detected (NotDetected); Methadone Screen, Urine Not Detected (NotDetected); Opiate Screen,Urine Not Detected (NotDetected); Oxycodone Screen, Urine Not Detected (NotDetected); Phencyclidine Screen,Urine Not Detected (NotDetected); Tricyclic Antidepressant,Urine Not Detected (NotDetected); Urn Cannabinoid Scrn Not Detected (NotDetected)
[2022-08-16] MEDS ORDERED: MAG HYDROX/AL HYDROX/SIMETH 30 ML CUP PO PRN (16:44)
[2022-08-16] MEDS ORDERED: MAGNESIUM HYDROXIDE 2,400 MG/10 ML CUP PO PRN (16:44)
[2022-08-16] MEDS ORDERED: ACETAMINOPHEN TAB 325 MG TAB PO PRN (16:44)
[2022-08-16] MEDS ORDERED: HALOPERIDOL LACTATE 5 MG/ML 1 ML VIAL IM PRN (16:44)
[2022-08-16] MEDS ORDERED: MELATONIN 1 MG TAB PO PRN (16:48)
[2022-08-16] MEDS ORDERED: LORazepam 2 MG/ML INJ IM PRN (16:50)
[2022-08-16] MEDS: metFORMIN 500 MG TAB PO SCH (18:04)
[2022-08-16] MEDS: DIVALPROEX ER 500 MG TAB.ER.24H PO SCH (20:48)
--- NOTE | 2022-08-17 00:28 | P.CONS ---
History of Present Illness - Reason for Consult Consult date: 08/16/22 - History of Present Illness The patient is a 27-year-old male with a PMH of type II DM and schizoaffective disorder who was brought in to the emergency room under police custody after the patient was reported to be suicidal and threatening to jump off a local bridge. The patient was admitted to the mental health unit where he was seen and evaluated. The patient states that he has been suffering with depression for most of his life and that he has been having several arguments with his parents at home. Reports difficulty sleeping and having anger issues. He also reports hearing voices. He denied any physical complaints at the time of interview. Denied experiencing chest discomfort, shortness of breath, fever, chills, cough, nausea, vomiting, abdominal pain, diarrhea. Patient denied tobacco, alcohol, or substance use. Review of systems: Pertinent positives and negatives as discussed in HPI, a complete review of systems was performed and all other systems are negative. Physical examination: General: non toxic, no distress, appears at stated age, obese Derm: no unusual rashes/lesions, no unusual ecchymoses, warm, dry Head: atraumatic, normocephalic, symmetric Eyes: EOMI, no lid lag, anicteric sclera ENT: Nose and ears atraumatic, no thrush, no pharyngeal erythema Neck: trachea midline, supple Mouth: no lip lesion, mucus membranes moist Cardiovascular: S1S2 reg, no murmur, no edema Lungs: CTA bilateral, no rhonchi, no rales , no accessory muscle use Abdominal: soft, nontender to palpation, no guarding Ext: no gross muscle atrophy, no contractures, Neuro: No gross focal neuro deficits noted Psych: Alert, oriented, appropriate affect Assessment: Type II DM Depression with suicidal ideation Imaging: None performed Data Review: Urine toxicology from the emergency room was unremarkable with coronal virus PCR negative. Vital signs upon presentation were BP 130/80, pulse 88, SpO2 98% on room air, temperature 98F, and respiratory rate 20. Plan: Continue with home metformin dose 500 mg by mouth twice a day Follow up A1c levels Defer management of depression and psychosis to primary psychiatry service Thank you for allowing us to participate in the care of this patient. We will follow peripherally. Do not hesitate to contact us with questions. Someone can be reached from the [facility] hospitalist group at all hours of the day at [phone]. Past Medical History Past Medical History: Diabetes Mellitus History of Any Multi-Drug Resistant Organisms: None Reported Past Surgical History: No Surgical Hx Reported Additional Past Surgical History / Comment(s): extra thumb removed from right hand. wisdom teeth. eustachian tubes. Smoking Status: Former smoker - Past Family History Mother Family Medical History: Diabetes Mellitus Medications and Allergies Home Medications Medication Instructions Recorded Confirmed Type Divalproex ER [Depakote ER] 1,000 mg PO HS 30 Days tab 07/26/21 08/16/22 Rx lamoTRIgine [LaMICtal] 100 mg PO DAILY 30 Days tab 07/26/21 08/16/22 Rx PARoxetine HCL 30 mg PO DAILY 06/11/22 08/16/22 History fluPHENAZine decanoate [Prolixin 25 mg IM WE 06/11/22 08/16/22 History Decanoate] Melatonin 2 mg PO HS PRN 08/16/22 08/16/22 History metFORMIN HCL ER [Glucophage XR] 500 mg PO BID 08/16/22 08/16/22 History Allergies Allergy/AdvReac Type Severity Reaction Status Date / Time Penicillins Allergy Rash/Hives Verified 08/16/22 17:30 venom-honey bee Allergy Swelling Verified 08/16/22 17:30 [bee venom (honey bee)] Physical Exam Vitals: Vital Signs Temp Pulse Pulse Resp BP BP Pulse Ox 08/16/22 17:38 98.1 F 102 H 137/85 08/16/22 16:56 98.0 F 82 20 132/80 98 08/16/22 12:20 98.0 F 88 20 138/80 98 Intake and Output 08/16/22 08/16/22 08/17/22 14:59 22:59 06:59 Other: Weight 107.955 kg 107.955 kg
[2022-08-17] MEDS: LORazepam 1 MG TAB PO PRN ×2 (01:32→20:44)
[2022-08-17 07:34] LABS: ALT 27 U/L (4-49); AST 30 U/L (17-59); African American GFR (CKD) >90 (>60 ml/min/1.73 sqM); Albumin 4.7 g/dL (3.5-5.0); Alkaline Phosphatase 65 U/L (38-126); Anion Gap 8 mmol/L; Basophils % (A) 1 %; Blood Urea Nitrogen 16 mg/dL (9-20); Calcium 9.8 mg/dL (8.4-10.2); Carbon Dioxide 30 mmol/L (22-30); Chloride 103 mmol/L (98-107); Eosinophils # (A) 0.2 k/uL (0-0.7); Eosinophils % (A) 3 %; Glucose 126 mg/dL (74-99); HCT 43.5 % (39.0-53.0); HGB 15.3 gm/dL (13.0-17.5); Lymphocytes # (A) 3.3 k/uL (1.0-4.8); Lymphocytes % (A) 46 %; MCH 28.5 pg (25.0-35.0); MCHC 35.2 g/dL (31.0-37.0); MCV 80.8 fL (80.0-100.0); Monocytes # (A) 0.4 k/uL (0-1.0); Monocytes % (A) 6 %; Neutrophils % (A) 42 %; Non-African American GFR(CKD) >90 (>60 ml/min/1.73 sqM); Platelet Count 208 k/uL (150-450); Potassium 4.2 mmol/L (3.5-5.1); RBC 5.39 m/uL (4.30-5.90); RDW 13.7 % (11.5-15.5); Sodium 141 mmol/L (137-145); Total Bilirubin 0.9 mg/dL (0.2-1.3); WBC 7.2 k/uL (3.8-10.6)
[2022-08-17] MEDS: PARoxetine 10 MG TAB PO SCH (07:42)
[2022-08-17] MEDS: lamoTRIgine 100 MG TAB PO SCH (07:42)
[2022-08-17] MEDS: metFORMIN 500 MG TAB PO SCH ×2 (07:43→18:04)
--- NOTE | 2022-08-17 09:20 | P.HP ---
Psychiatric H&P - . H&P Date: 08/17/22 History & Physical: Allergies Allergy/AdvReac Type Severity Reaction Status Date / Time Penicillins Allergy Rash/Hives Verified 08/16/22 17:30 venom-honey bee Allergy Swelling Verified 08/16/22 17:30 [bee venom (honey bee)] Vital Signs Temp 97.0 F L 08/17/22 02:58 Pulse 89 08/17/22 02:58 Resp 17 08/17/22 02:58 BP 140/88 08/17/22 02:58 Pulse Ox 98 08/17/22 02:58 FiO2 Intake & Output 08/16/22 08/17/22 08/17/22 18:59 06:59 18:59 Weight 107.955 kg Laboratory Last Values WBC 7.2 k/uL (3.8-10.6) 08/17/22 06:41 RBC 5.39 m/uL (4.30-5.90) 08/17/22 06:41 Hgb 15.3 gm/dL (13.0-17.5) 08/17/22 06:41 Hct 43.5 % (39.0-53.0) 08/17/22 06:41 MCV 80.8 fL (80.0-100.0) 08/17/22 06:41 MCH 28.5 pg (25.0-35.0) 08/17/22 06:41 MCHC 35.2 g/dL (31.0-37.0) 08/17/22 06:41 RDW 13.7 % (11.5-15.5) 08/17/22 06:41 Plt Count 208 k/uL (150-450) 08/17/22 06:41 MPV 9.0 08/17/22 06:41 Neutrophils % 42 % 08/17/22 06:41 Lymphocytes % 46 % 08/17/22 06:41 Monocytes % 6 % 08/17/22 06:41 Eosinophils % 3 % 08/17/22 06:41 Basophils % 1 % 08/17/22 06:41 Neutrophils # 3.0 k/uL (1.3-7.7) 08/17/22 06:41 Lymphocytes # 3.3 k/uL (1.0-4.8) 08/17/22 06:41 Monocytes # 0.4 k/uL (0-1.0) 08/17/22 06:41 Eosinophils # 0.2 k/uL (0-0.7) 08/17/22 06:41 Basophils # 0.0 k/uL (0-0.2) 08/17/22 06:41 Sodium 141 mmol/L (137-145) 08/17/22 06:41 Potassium 4.2 mmol/L (3.5-5.1) 08/17/22 06:41 Chloride 103 mmol/L (98-107) 08/17/22 06:41 Carbon Dioxide 30 mmol/L (22-30) 08/17/22 06:41 Anion Gap 8 mmol/L 08/17/22 06:41 BUN 16 mg/dL (9-20) 08/17/22 06:41 Creatinine 0.71 mg/dL (0.66-1.25) 08/17/22 06:41 Est GFR (CKD-EPI)AfAm >90 (>60 ml/min/1.73 sqM) 08/17/22 06:41 Est GFR (CKD-EPI)NonAf >90 (>60 ml/min/1.73 sqM) 08/17/22 06:41 Glucose 126 mg/dL (74-99) H 08/17/22 06:41 Calcium 9.8 mg/dL (8.4-10.2) 08/17/22 06:41 Total Bilirubin 0.9 mg/dL (0.2-1.3) 08/17/22 06:41 AST 30 U/L (17-59) 08/17/22 06:41 ALT 27 U/L (4-49) 08/17/22 06:41 Alkaline Phosphatase 65 U/L (38-126) 08/17/22 06:41 Total Protein 8.0 g/dL (6.3-8.2) 08/17/22 06:41 Albumin 4.7 g/dL (3.5-5.0) 08/17/22 06:41 TSH 2.000 mIU/L (0.465-4.680) 08/17/22 06:41 Urine Opiates Screen Not Detected (NotDetected) 08/16/22 15:39 Ur Oxycodone Screen Not Detected (NotDetected) 08/16/22 15:39 Urine Methadone Screen Not Detected (NotDetected) 08/16/22 15:39 Ur Propoxyphene Screen Not Detected (NotDetected) 08/16/22 15:39 Ur Barbiturates Screen Not Detected (NotDetected) 08/16/22 15:39 U Tricyclic Antidepress Not Detected (NotDetected) 08/16/22 15:39 Ur Phencyclidine Scrn Not Detected (NotDetected) 08/16/22 15:39 Ur Amphetamines Screen Not Detected (NotDetected) 08/16/22 15:39 U Methamphetamines Scrn Not Detected (NotDetected) 08/16/22 15:39 U Benzodiazepines Scrn Not Detected (NotDetected) 08/16/22 15:39 Urine Cocaine Screen Not Detected (NotDetected) 08/16/22 15:39 U Marijuana (THC) Screen Not Detected (NotDetected) 08/16/22 15:39 Coronavirus (PCR) Not Detected (Not Detectd) 08/16/22 15:39 08/17/22 09:00 This is a psychiatric assessment on [facility] who is a 27-year-old male with long history of mental illness and multiple psychiatric hospitalizations in the past patient remains a poor historian and states that he is here because he was hearing some voices He says that he has never responded to any medications although he takes them regularly Patient then however changes mind several times stating that he had skipped the medications for a day or sometimes a few days Patient was brought to the hospital the previous day but the family decided to take him back home The patient was brought back again after the had been threatening to jump off the bridge Following is an abstract from the ER assessment: 27-year-old male presents to the emergency department in [facility]. He was at a bridge when police were alerted that he was going to jump into the water. Patient was seen in emergency room yesterday for suicidal thoughts and was sent home. States that his suicidal thoughts have continued. He has multiple plans to commit suicide. One of them was that he was going to jump into the water. He was stopped by police. Did not hurt himself. Brought into the emergency department for reevaluation. He denies drug or alcohol use. States that he has auditory and visual hallucinations telling him to harm himself. He did not take his medications today but took them last night. States his medications have not been working. He has been hospitalized several times for mental health. The last of which was one year ago. He denies homicidal ideations. 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 Patient states that he has finished GED and was in special ed Patient reports that he also has diabetes but does not take any medications si nce his hemoglobin A1c is only 5.3 I were the chart shows that the patient is still on metformin Patient appears to be an unreliable historian Mental Status Exam: General Appearance: Patient appears to be stated age is alert, is directable and attempts to cooperate today. Behavior: Patient is seated without any agitated behavior. Intermittent eye contact. Speech: Patient's speech is spontaneous. Has a slight lisp Mood/Affect: Remains bright Patient comes across as very attention seeking and talkative Suicidality/Homicidality: Denies SI / HI Perceptions: he admits to chronic auditory and visual hallucinations which he claims have never responded to any medications Though content/process: Linear and concrete Memory and concentration: poor. Judgment and insight: Poor Diagnostic impression: Bipolar disorder mixed type Rule out autism spectrum disorder Personality disorder unspecified Plan: -Patient is admitted under voluntary status to MHU for stabilization of psychiatric symptoms and safety. -Medications: Continue on medications that include Depakote Haldol when necessary Ativan when necessary melatonin 2 mg at nighttime metformin 500 mg twice a day and Paxil 30 mg daily Patient is also on Prolixin decanoate 25 mg IM frequency? -When necessary Ativan and Thorazine for agitation/aggression. -NRT - nicotine patch -SW on board for discharge planning. Encouraged the patient to participate in milieu. Eran Hernandez M.D.
[2022-08-17 11:59] LABS: Chol/HDL Ratio 3.77 Ratio; LDL Cholesterol,Calculated 104.4 mg/dL (0.0-131.0)
[2022-08-17] MEDS: DIVALPROEX ER 500 MG TAB.ER.24H PO SCH (20:44)
[2022-08-17] MEDS: haloperidoL 5 MG TAB PO PRN (20:44)
[2022-08-18] MEDS: lamoTRIgine 100 MG TAB PO SCH (08:56)
[2022-08-18] MEDS: PARoxetine 10 MG TAB PO SCH (08:56)
[2022-08-18] MEDS: metFORMIN 500 MG TAB PO SCH ×2 (08:56→17:47)
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
[2022-08-18 20:24] LABS: Glucose,Whole Blood 142 mg/dL (70-110)
[2022-08-18] MEDS: LITHIUM CARBONATE 300 MG CAP PO SCH (20:57)
[2022-08-18] MEDS: DIVALPROEX ER 500 MG TAB.ER.24H PO SCH (20:57)
[2022-08-19] MEDS: metFORMIN 500 MG TAB PO SCH ×2 (08:01→18:15)
[2022-08-19] MEDS: lamoTRIgine 100 MG TAB PO SCH (08:01)
[2022-08-19] MEDS: LITHIUM CARBONATE 300 MG CAP PO SCH ×2 (08:01→20:43)
[2022-08-19] MEDS: PARoxetine 10 MG TAB PO SCH (08:01)
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
[2022-08-19] MEDS: haloperidoL 5 MG TAB PO PRN (16:10)
[2022-08-19] MEDS: DIVALPROEX ER 500 MG TAB.ER.24H PO SCH (20:43)
[2022-08-20] MEDS ORDERED: fluPHENAZine DECANOATE 25 MG/ML 5ML MDV IM SCH (09:00)
[2022-08-20] MEDS: PARoxetine 20 MG TAB PO SCH (09:06)
[2022-08-20] MEDS: lamoTRIgine 100 MG TAB PO SCH (09:06)
[2022-08-20] MEDS: metFORMIN 500 MG TAB PO SCH ×2 (09:06→17:45)
[2022-08-20] MEDS: LITHIUM CARBONATE 300 MG CAP PO SCH (09:07)
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
[2022-08-20] MEDS: DIVALPROEX ER 500 MG TAB.ER.24H PO SCH (20:17)
[2022-08-20] MEDS ORDERED: LITHIUM CARBONATE 150 MG CAP PO SCH (21:00)
[2022-08-21 07:08] VITALS: BP 135/78; PULSE 87; RESP 18; TEMP 97.9
[2022-08-21] MEDS: lamoTRIgine 100 MG TAB PO SCH (08:34)
[2022-08-21] MEDS: metFORMIN 500 MG TAB PO SCH (08:34)
[2022-08-21] MEDS: PARoxetine 20 MG TAB PO SCH (08:34)
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
[2022-08-21 12:30] LABS: Glucose,Whole Blood 82 mg/dL (70-110)
== END 2022-08-21 13:55 | disposition home or self-care (01) | DRG 885 ==
LOC: EC 12:10 → 3MHU 16:39
PROVIDERS: ADMIT Psychiatry & Neurology Psychiatry; ATTEND Psychiatry & Neurology Psychiatry
DX: F25.0 Schizoaffective disorder, bipolar type (principal); R45.851 Suicidal ideations; F43.10 Post-traumatic stress disorder, unspecified; F60.2 Antisocial personality disorder; Z87.891 Personal history of nicotine dependence; E11.9 Type 2 diabetes mellitus without complications; Z79.84 Long term (current) use of oral hypoglycemic drugs; Z79.899 Other long term (current) drug therapy; Z83.3 Family history of diabetes mellitus; Z20.822 Contact with and (suspected) exposure to COVID-19; Z28.21 Immunization not carried out because of patient refusal; Z88.0 Allergy status to penicillin; Z91.030 Bee allergy status
CPT/HCPCS: 80053; 80061; 80178; 80306; 82075; 83036; 84443; 85025; 87635; 99285

== ENCOUNTER 2023-06-16 06:00 | Emergency (ER) | payer MEDICARE, OTHER ==
--- NOTE | 2023-06-16 06:44 | ED ---
Psych HPI - General Chief Complaint: Psychiatric Symptoms Stated Complaint: Mental Health Petition Time Seen by Provider: 06/16/23 06:03 Source: patient, police, RN notes reviewed Mode of arrival: ambulatory Limitations: no limitations - History of Present Illness Initial Comments: 27-year-old male presents emergency department with police for psychiatric evaluation. Patient states that he is suicidal and homicidal. Patient states that he was threatened at his apartment so he states that is paranoid. Patient states that he has a long psychiatric history. Patient does admit to marijuana use no alcohol abuse no other drug use. He states that he had some self-harm into his left arm. - Related Data Home Medications Medication Instructions Recorded Confirmed Ascorbic Acid [Vitamin C] 500 mg PO BID 06/16/23 06/16/23 Cholecalciferol [Vitamin D3 (125 125 mcg PO DAILY 06/16/23 06/16/23 Mcg = 5000 Iu)] Louise Carbonate [Louise 600 mg PO HS 06/16/23 06/16/23 Carbonate ER] Zinc Gluconate [Zinc] 25 mg PO DAILY 06/16/23 06/16/23 fluPHENAZine decanoate [Prolixin 25 mg IM Q14D 06/16/23 06/16/23 Decanoate] Previous Rx's Medication Instructions Recorded Divalproex ER [Depakote ER] 1,000 mg PO HS 30 Days #60 tab 08/21/22 PARoxetine [Paxil] 40 mg PO DAILY 30 Days #60 tab 08/21/22 lamoTRIgine [LaMICtal] 100 mg PO DAILY 30 Days #30 tab 08/21/22 Allergies Allergy/AdvReac Type Severity Reaction Status Date / Time Penicillins Allergy Rash/Hives Verified 06/16/23 09:23 venom-honey bee Allergy Swelling Verified 06/16/23 09:23 [bee venom (honey bee)] Review of Systems ROS Statement: Those systems with pertinent positive or pertinent negative responses have been documented in the HPI. ROS Other: All systems not noted in ROS Statement are negative. Past Medical History Past Medical History: Diabetes Mellitus History of Any Multi-Drug Resistant Organisms: None Reported Past Surgical History: No Surgical Hx Reported Additional Past Surgical History / Comment(s): extra thumb removed from right hand. wisdom teeth. eustachian tubes. Past Psychological History: Schizoaffective Disorder Smoking Status: Vaper Past Alcohol Use History: None Reported Past Drug Use History: None Reported - Past Family History Mother Family Medical History: Diabetes Mellitus General Exam Limitations: no limitations General appearance: alert, in no apparent distress Head exam: Present: atraumatic, normocephalic, normal inspection Eye exam: Present: normal appearance, PERRL, EOMI. Absent: scleral icterus, conjunctival injection, periorbital swelling ENT exam: Present: normal exam, normal oropharynx, mucous membranes moist Neck exam: Present: normal inspection, full ROM. Absent: tenderness, meningismus, lymphadenopathy Respiratory exam: Present: normal lung sounds bilaterally. Absent: respiratory distress, wheezes, rales, rhonchi, stridor Cardiovascular Exam: Present: normal rhythm, tachycardia, normal heart sounds. Absent: systolic murmur, diastolic murmur, rubs, gallop, clicks GI/Abdominal exam: Present: soft, normal bowel sounds. Absent: distended, tenderness, guarding, rebound, rigid Neurological exam: Present: alert Psychiatric exam: Present: anxious Skin exam: Present: warm, dry, intact, normal color. Absent: rash Course Vital Signs 06/16/23 06/16/23 06/16/23 06:02 10:00 17:58 Temperature 97.9 F 98.2 F Pulse Rate 113 H 98 102 H Respiratory 20 18 18 Rate Blood Pressure 148/92 134/84 138/86 O2 Sat by Pulse 97 97 97 Oximetry 06/17/23 00:32 Temperature Pulse Rate 107 H Respiratory 18 Rate Blood Pressure O2 Sat by Pulse 97 Oximetry Medical Decision Making - Medical Decision Making Was pt. sent in by a medical professional or institution (, PA, [employer] PUBLISH[employer]ELOP[employer], urgent care, hospital, or group home...) When possible be specific @ -[No] Did you speak to anyone other than the patient for history (EMS, parent, family, police, friend...)? What history was obtained from this source @ -[No] Did you review nursing and triage notes (agree or disagree)? Why? @ -[I reviewed and agree with nursing and triage notes] Were old charts reviewed (outside hosp., previous admission, EMS record, old EKG, old radiological studies, urgent care reports/EKG's, group home records)? Report findings @ -[No old charts were reviewed] Differential Diagnosis (chest pain, altered mental status, abdominal pain women, abdominal pain men, vaginal bleeding, weakness, fever, dyspnea, syncope, headache, dizziness, GI bleed, back pain, seizure, CVA, palpatations, mental health, musculoskeletal)? @ -[Differential Mental Health Depression, anxiety, bipolar, psychosis, schizophrenia, borderline personality, situational depression, adjustment disorder, behavioral disorder, brain tumor, malingering, substance abuse, encephalopathy, medication reaction, dementia, hypothyroidism, degenerative neurologic disorder, lupus.... This is not meant to be all-inclusive list EKG interpreted by me (3pts min.). @ -[none] X-rays interpreted by me (1pt min.). @ -[None done] CT interpreted by me (1pt min.). @ -[None done] U/S interpreted by me (1pt. min.). @ -[None done] What testing was considered but not performed or refused? (CT, X-rays, U/S, labs)? Why? @ -[None] What meds were considered but not given or refused? Why? @ -[None] Did you discuss the management of the patient with other professionals (professionals i.e. , PA, [employer], lab, RT, psych nurse, social human services assistants, mail handler, teacher, building drafting officer, clinical case manager)? Give summary @ -[EPS evaluated the patient and talk to psychiatrist recommending inpatient psychiatric treatment] Was smoking cessation discussed for >3mins.? @ -[No] Was critical care preformed (if so, how long)? @ -[No] Were there social determinants of health that impacted care today? How? (Homele ssness, low income, unemployed, alcoholism, drug addiction, transportation, low edu. Level, literacy, decrease access to med. care, group home, rehab)? @ -[No] Was there de-escalation of care discussed even if they declined (Discuss DNR or withdrawal of care, Hospice)? DNR status @ -[No] What co-morbidities impacted this encounter? (DM, HTN, Smoking, COPD, CAD, Cancer, CVA, ARF, Chemo, Hep., AIDS, mental health diagnosis, sleep apnea, morbid obesity)? @ -[None] Was patient admitted / discharged? Hospital course, mention meds given and route, prescriptions, significant lab abnormalities, going to OR and other pertinent info. @ -[Patient was eval by EPS will be transferred to psychiatric facility as there is no open beds here at [facility]. Patient is medically cleared. Undiagnosed new problem with uncertain prognosis? @ -[No] Drug Therapy requiring intensive monitoring for toxicity (Heparin, Nitro, I nsulin, Cardizem)? @ -[No] Were any procedures done? @ -[No] Diagnosis/symptom? @ -[Depression, suicidal ideation, psychosis Acute, or Chronic, or Acute on Chronic? @ -[Acute Uncomplicated (without systemic symptoms) or Complicated (systemic symptoms)? @ -[Uncomplicated t] Side effects of treatment? @ -[No] Exacerbation, Progression, or Severe Exacerbation? @ -[No] Poses a threat to life or bodily function? How? (Chest pain, [place], [place], pneumonia, PE, COPD, DKA, ARF, appy, cholecystitis, CVA, Diverticulitis, Homicidal, Suicidal, threat to staff... and all critical care pts) @ -[Yes patient is suicidal] - Lab Data Result diagrams: 06/16/23 17:54 06/16/23 17:54 Lab Results 06/16/23 06/16/23 06/16/23 Range/Units 07:29 07:29 17:54 WBC 9.8 (3.8-10.6) k/uL RBC 4.95 (4.30-5.90) m/uL Hgb 14.5 (13.0-17.5) gm/dL Hct 40.2 (39.0-53.0) % MCV 81.1 (80.0-100.0) fL MCH 29.3 (25.0-35.0) pg MCHC 36.2 (31.0-37.0) g/dL RDW 13.3 (11.5-15.5) % Plt Count 199 (150-450) k/uL MPV 9.8 Neutrophils % 59 % Lymphocytes % 30 % Monocytes % 6 % Eosinophils % 1 % Basophils % 1 % Neutrophils # 5.8 (1.3-7.7) k/uL Lymphocytes # 3.0 (1.0-4.8) k/uL Monocytes # 0.6 (0-1.0) k/uL Eosinophils # 0.1 (0-0.7) k/uL Basophils # 0.1 (0-0.2) k/uL Sodium (137-145) mmol/L Potassium (3.5-5.1) mmol/L Chloride (98-107) mmol/L Carbon Dioxide (22-30) mmol/L Anion Gap mmol/L BUN (9-20) mg/dL Creatinine (0.66-1.25) mg/dL Est GFR (CKD-EPI)AfAm (>60 ml/min/1.73 sqM) Est GFR (CKD-EPI)NonAf (>60 ml/min/1.73 sqM) Glucose (74-99) mg/dL POC Glucose (mg/dL) (70-110) mg/dL POC Glu French Translator ID Calcium (8.4-10.2) mg/dL Total Bilirubin (0.2-1.3) mg/dL AST (17-59) U/L ALT (4-49) U/L Alkaline Phosphatase (38-126) U/L Total Protein (6.3-8.2) g/dL Albumin (3.5-5.0) g/dL Urine Color Urine Appearance (Clear) Urine pH (5.0-8.0) Ur Specific [place] (1.001-1.035) Urine Protein (Negative) Urine Glucose (UA) (Negative) Urine Ketones (Negative) Urine Blood (Negative) Urine Nitrite (Negative) Urine Bilirubin (Negative) Urine Urobilinogen (<2.0) mg/dL Ur Leukocyte Esterase (Negative) Urine Opiates Screen Not Detected (NotDetected) Ur Oxycodone Screen Not Detected (NotDetected) Urine Methadone Screen Not Detected (NotDetected) Ur Barbiturates Screen Not Detected (NotDetected) U Tricyclic Antidepress Not Detected (NotDetected) Ur Phencyclidine Scrn Not Detected (NotDetected) Ur Amphetamines Screen Not Detected (NotDetected) U Methamphetamines Scrn Not Detected (NotDetected) U Benzodiazepines Scrn Not Detected (NotDetected) Urine Cocaine Screen Not Detected (NotDetected) U Marijuana (THC) Screen Not Detected (NotDetected) SARS-CoV-2 (PCR) Not Detected (Not Detectd) 06/16/23 06/16/23 06/17/23 Range/Units 17:54 17:54 04:09 WBC (3.8-10.6) k/uL RBC (4.30-5.90) m/uL Hgb (13.0-17.5) gm/dL Hct (39.0-53.0) % MCV (80.0-100.0) fL MCH (25.0-35.0) pg MCHC (31.0-37.0) g/dL RDW (11.5-15.5) % Plt Count (150-450) k/uL MPV Neutrophils % % Lymphocytes % % Monocytes % % Eosinophils % % Basophils % % Neutrophils # (1.3-7.7) k/uL Lymphocytes # (1.0-4.8) k/uL Monocytes # (0-1.0) k/uL Eosinophils # (0-0.7) k/uL Basophils # (0-0.2) k/uL Sodium 138 (137-145) mmol/L Potassium 3.7 (3.5-5.1) mmol/L Chloride 102 (98-107) mmol/L Carbon Dioxide 26 (22-30) mmol/L Anion Gap 10 mmol/L BUN 8 L (9-20) mg/dL Creatinine 0.55 L (0.66-1.25) mg/dL Est GFR (CKD-EPI)AfAm >90 (>60 ml/min/1.73 sqM) Est GFR (CKD-EPI)NonAf >90 (>60 ml/min/1.73 sqM) Glucose 355 H (74-99) mg/dL POC Glucose (mg/dL) 330 H (70-110) mg/dL POC Glu French Translator ID Cornelia Encinas Calcium 9.7 (8.4-10.2) mg/dL Total Bilirubin 1.0 (0.2-1.3) mg/dL AST 41 (17-59) U/L ALT 43 (4-49) U/L Alkaline Phosphatase 93 (38-126) U/L Total Protein 7.6 (6.3-8.2) g/dL Albumin 4.6 (3.5-5.0) g/dL Urine Color Light Yellow Urine Appearance Clear (Clear) Urine pH 5.5 (5.0-8.0) Ur Specific [place] 1.041 H (1.001-1.035) Urine Protein Trace H (Negative) Urine Glucose (UA) 4+ H (Negative) Urine Ketones 2+ H (Negative) Urine Blood Negative (Negative) Urine Nitrite Negative (Negative) Urine Bilirubin Negative (Negative) Urine Urobilinogen <2.0 (<2.0) mg/dL Ur Leukocyte Esterase Negative (Negative) Urine Opiates Screen (NotDetected) Ur Oxycodone Screen (NotDetected) Urine Methadone Screen (NotDetected) Ur Barbiturates Screen (NotDetected) U Tricyclic Antidepress (NotDetected) Ur Phencyclidine Scrn (NotDetected) Ur Amphetamines Screen (NotDetected) U Methamphetamines Scrn (NotDetected) U Benzodiazepines Scrn (NotDetected) Urine Cocaine Screen (NotDetected) U Marijuana (THC) Screen (NotDetected) SARS-CoV-2 (PCR) (Not Detectd) Disposition Clinical Impression: Depression, Suicidal ideation, Acute psychosis Disposition: TRANSFER TO PSYCH HOSP/UNIT Condition: Stable Referrals: Albert Khan [Primary Care Provider] - 1-2 days Time of Disposition: 15:39
[2023-06-16 07:53] LABS: Amphetamine Screen,Urine Not Detected (NotDetected); Barbiturate Screen,Urine Not Detected (NotDetected); Benzodiazepines Screen,Urine Not Detected (NotDetected); Cocaine Screen,Urine Not Detected (NotDetected); Methadone Screen, Urine Not Detected (NotDetected); Opiate Screen,Urine Not Detected (NotDetected); Oxycodone Screen, Urine Not Detected (NotDetected); Phencyclidine Screen,Urine Not Detected (NotDetected); Tricyclic Antidepressant,Urine Not Detected (NotDetected); Urn Cannabinoid Scrn Not Detected (NotDetected)
[2023-06-16 10:23] VITALS: RESP 18
[2023-06-16 18:10] LABS: Basophils # (A) 0.1 k/uL (0-0.2); Basophils % (A) 1 %; Eosinophils # (A) 0.1 k/uL (0-0.7); Eosinophils % (A) 1 %; HCT 40.2 % (39.0-53.0); HGB 14.5 gm/dL (13.0-17.5); Lymphocytes % (A) 30 %; MCH 29.3 pg (25.0-35.0); MCHC 36.2 g/dL (31.0-37.0); MCV 81.1 fL (80.0-100.0); Mean Platelet Volume 9.8; Monocytes # (A) 0.6 k/uL (0-1.0); Monocytes % (A) 6 %; Neutrophils # (A) 5.8 k/uL (1.3-7.7); Neutrophils % (A) 59 %; Platelet Count 199 k/uL (150-450); RBC 4.95 m/uL (4.30-5.90); RDW 13.3 % (11.5-15.5); WBC 9.8 k/uL (3.8-10.6)
[2023-06-16 18:11] LABS: ALT 43 U/L (4-49); AST 41 U/L (17-59); African American GFR (CKD) >90 (>60 ml/min/1.73 sqM); Albumin 4.6 g/dL (3.5-5.0); Alkaline Phosphatase 93 U/L (38-126); Anion Gap 10 mmol/L; Blood Urea Nitrogen 8 mg/dL (9-20); Calcium 9.7 mg/dL (8.4-10.2); Carbon Dioxide 26 mmol/L (22-30); Chloride 102 mmol/L (98-107); Glucose 355 mg/dL (74-99); Non-African American GFR(CKD) >90 (>60 ml/min/1.73 sqM); Potassium 3.7 mmol/L (3.5-5.1); Sodium 138 mmol/L (137-145); Total Protein 7.6 g/dL (6.3-8.2)
[2023-06-16 21:41] LABS: Appearance,Urine Clear (Clear); Bilirubin,Urine Negative (Negative); Blood,Urine Negative (Negative); Color,Urine Light Yellow; Glucose,Urine (UA) 4+ (Negative); Leukocyte Esterase,Urine Negative (Negative); Nitrite,Urine Negative (Negative); PH, Urine 5.5 (5.0-8.0); Protein,Urine Trace (Negative); Specific Gravity,Urine 1.041 (1.001-1.035); Urobilinogen,Urine <2.0 mg/dL (<2.0)
[2023-06-16] MEDS: NON FORMULARY DRUG (Lithium Carbonate [Lithium Carbonate Er] 300 MG Tablet) PO SCH (21:47)
[2023-06-16 22:05] LABS: Ketones,Urine 2+ (Negative)
[2023-06-16] MEDS: DIVALPROEX ER 500 MG TAB.ER.24H PO SCH (22:05)
[2023-06-17] MEDS ORDERED: LORazepam 1 MG TAB PO STA (00:27)
[2023-06-17 04:13] LABS: Glucose,Whole Blood 330 mg/dL (70-110)
[2023-06-17] MEDS ORDERED: DEXTROSE 50% SYRINGE 50 ML IVP PRN ×2 (04:14)
[2023-06-17 06:43] LABS: Glucose,Whole Blood 364 mg/dL (70-110)
[2023-06-17 06:58] VITALS: BP 116/75; PULSE 73
[2023-06-17] MEDS: INSULIN ASPART (NovoLOG) 100 UNIT/ML VIAL SQ SCH ×4 (07:31→20:33)
[2023-06-17 08:38] VITALS: TEMP 97.8
[2023-06-17] MEDS ORDERED: PARoxetine 20 MG TAB PO SCH (09:00)
[2023-06-17] MEDS ORDERED: lamoTRIgine 100 MG TAB PO SCH (09:00)
[2023-06-17 13:37] LABS: Glucose,Whole Blood 404 mg/dL (70-110)
[2023-06-17 14:33] LABS: Glucose,Whole Blood 418 mg/dL (70-110)
[2023-06-17] MEDS ORDERED: fluPHENAZine DECANOATE 25 MG/ML 5ML MDV IM SCH (15:00)
[2023-06-17 16:51] LABS: Glucose,Whole Blood 300 mg/dL (70-110)
[2023-06-17 20:26] LABS: Glucose,Whole Blood 305 mg/dL (70-110)
[2023-06-17] MEDS: DIVALPROEX ER 500 MG TAB.ER.24H PO SCH (21:07)
[2023-06-17] MEDS: NON FORMULARY DRUG (Lithium Carbonate [Lithium Carbonate Er] 300 MG Tablet) PO SCH (21:08)
== END 2023-06-17 22:36 ==
LOC: EC 06:00 → EEVIPCON 06:00 → EC 06-17 22:36
DX: R45.851 Suicidal ideations (principal); F25.9 Schizoaffective disorder, unspecified; F32.A Depression, unspecified; E11.9 Type 2 diabetes mellitus without complications; F17.290 Nicotine dependence, other tobacco product, uncomplicated; Z88.0 Allergy status to penicillin; Z91.030 Bee allergy status; Z79.899 Other long term (current) drug therapy
CPT/HCPCS: 82075; 36415 ×2; 80053; 85025; 81003; 80306; 87635; 99285; 96372; J2680

== ENCOUNTER 2023-12-22 14:51 | Emergency (ER) | payer MEDICAID, MEDICARE ==
[2023-12-22 15:11] VITALS: RESP 16; TEMP 97.7
--- NOTE | 2023-12-22 15:30 | ED ---
Lower Extremity Injury HPI - General Chief Complaint: Extremity Injury, Lower Stated Complaint: L Toe Injury-[facility] Time Seen by Provider: 12/22/23 15:08 Source: patient, RN notes reviewed Mode of arrival: ambulatory Limitations: no limitations - History of Present Illness Initial Comments: 28-year-old male presents emergency department chief complaint of left foot first digit injury. Patient states he ran over his toe with a pallet terrell he states nail sticking up yesterday but cut it off. Patient was sent here for evaluation. Patient offers no other complaints. - Related Data Home Medications Medication Instructions Recorded Confirmed Ascorbic Acid [Vitamin C] 500 mg PO BID 06/16/23 06/16/23 Cholecalciferol [Vitamin D3 (125 125 mcg PO DAILY 06/16/23 06/16/23 Mcg = 5000 Iu)] [place] Carbonate [[place] 600 mg PO HS 06/16/23 06/16/23 Carbonate ER] Zinc Gluconate [Zinc] 25 mg PO DAILY 06/16/23 06/16/23 fluPHENAZine decanoate [Prolixin 25 mg IM Q14D 06/16/23 06/16/23 Decanoate] Previous Rx's Medication Instructions Recorded Divalproex ER [Depakote ER] 1,000 mg PO HS 30 Days #60 tab 08/21/22 PARoxetine [Paxil] 40 mg PO DAILY 30 Days #60 tab 08/21/22 lamoTRIgine [LaMICtal] 100 mg PO DAILY 30 Days #30 tab 08/21/22 Allergies Allergy/AdvReac Type Severity Reaction Status Date / Time Penicillins Allergy Rash/Hives Verified 06/16/23 09:23 venom-honey bee Allergy Swelling Verified 06/16/23 09:23 [bee venom (honey bee)] Review of Systems ROS Statement: Those systems with pertinent positive or pertinent negative responses have been documented in the HPI. ROS Other: All systems not noted in ROS Statement are negative. Past Medical History Past Medical History: Diabetes Mellitus History of Any Multi-Drug Resistant Organisms: None Reported Past Surgical History: No Surgical Hx Reported Additional Past Surgical History / Comment(s): extra thumb removed from right hand. wisdom teeth. eustachian tubes. Past Psychological History: Schizoaffective Disorder Smoking Status: Vaper Past Alcohol Use History: None Reported Past Drug Use History: None Reported - Past Family History Mother Family Medical History: Diabetes Mellitus General Exam Limitations: no limitations General appearance: alert, in no apparent distress Head exam: Present: atraumatic, normocephalic, normal inspection Neck exam: Present: normal inspection. Absent: tenderness, meningismus, lymphadenopathy Respiratory exam: Present: normal lung sounds bilaterally. Absent: respiratory distress, wheezes, rales, rhonchi, stridor Cardiovascular Exam: Present: regular rate, normal rhythm, normal heart sounds. Absent: systolic murmur, diastolic murmur, rubs, gallop, clicks Extremities exam: Present: other (Left foot first digit there is a partial nail avulsion, no active bleeding mild tenderness) Course Vital Signs 12/22/23 15:00 Temperature 97.7 F Pulse Rate 95 Respiratory 16 Rate Blood Pressure 130/68 O2 Sat by Pulse 97 Oximetry Medical Decision Making - Medical Decision Making Was pt. sent in by a medical professional or institution (Dr. PA, DIESEL ENGINEER, urgent care, hospital, or fci...) When possible be specific @ -No Did you speak to anyone other than the patient for history (EMS, parent, family, police, friend...)? What history was obtained from this source @ -No Did you review nursing and triage notes (agree or disagree)? Why? @ -I reviewed and agree with nursing and triage notes Were old charts reviewed (outside hosp., previous admission, EMS record, old EKG, old radiological studies, urgent care reports/EKG's, fci records)? Report findings @ -No old charts were reviewed Differential Diagnosis (chest pain, altered mental status, abdominal pain women, abdominal pain men, vaginal bleeding, weakness, fever, dyspnea, syncope, headache, dizziness, GI bleed, back pain, seizure, CVA, palpatations, mental health, musculoskeletal)? @Toe fracture nail avulsion toe contusion EKG interpreted by me (3pts min.). @ -None X-rays interpreted by me (1pt min.). @ -X-ray left toes no acute fracture CT interpreted by me (1pt min.). @ -None done U/S interpreted by me (1pt. min.). @ -None done What testing was considered but not performed or refused? (CT, X-rays, U/S, labs)? Why? @ -None What meds were considered but not given or refused? Why? @ -None Did you discuss the management of the patient with other professionals (professionals i.e. , PA, DIESEL ENGINEER, lab, RT, psych nurse, social services assistant, conference organizer, teacher, information management officer, shelter case manager)? Give summary @ -No Was smoking cessation discussed for >3mins.? @ -No Was critical care preformed (if so, how long)? @ -No Were there social determinants of health that impacted care today? How? (Homelessness, low income, unemployed, alcoholism, drug addiction, transportation, low edu. Level, literacy, decrease access to med. care, long term, rehab)? @ -No Was there de-escalation of care discussed even if they declined (Discuss DNR or withdrawal of care, Hospice)? DNR status @ -No What co-morbidities impacted this encounter? (DM, HTN, Smoking, COPD, CAD, Cancer, CVA, ARF, Chemo, Hep., AIDS, mental health diagnosis, sleep apnea, morbid obesity)? @ -None Was patient admitted / discharged? Hospital course, mention meds given and route, prescriptions, significant lab abnormalities, going to OR and other pertinent info. @ -Discharge x-rays negative for acute fracture patient has a partial nail avulsion, toe contusion discharged in stable condition. Undiagnosed new problem with uncertain prognosis? @ -No Drug Therapy requiring intensive monitoring for toxicity (Heparin, Nitro, Insulin, Cardizem)? @ -No Were any procedures done? @ -No Diagnosis/symptom? @ -Toe contusion nail avulsion Acute, or Chronic, or Acute on Chronic? @ -Acute Uncomplicated (without systemic symptoms) or Complicated (systemic symptoms)? @ -Uncomplicated Side effects of treatment? @ -No Exacerbation, Progression, or Severe Exacerbation? @ -No Poses a threat to life or bodily function? How? (Chest pain, [place], [place], pneumonia, PE, COPD, DKA, ARF, appy, cholecystitis, CVA, Diverticulitis, Homicidal, Suicidal, threat to staff... and all critical care pts) @ -No Disposition Clinical Impression: Toe contusion, Nail avulsion of toe Disposition: HOME SELF-CARE Condition: Stable Instructions (If sedation given, give patient instructions): Foot Contusion (ED) Additional Instructions: Please return to the Emergency Department if symptoms worsen or any other concerns. Is patient prescribed a controlled substance at d/c from ED?: No Referrals: [facility] [Primary Care Provider] - 1-2 days Time of Disposition: 15:30
--- NOTE | 2023-12-22 15:34 | XR ---
EXAMINATION TYPE: XR toes LT DATE OF EXAM: 12/22/2023 COMPARISON: NONE HISTORY: Pain TECHNIQUE: 3 views of the left great toe submitted. FINDINGS: There is no fracture or dislocation seen. No radiopaque foreign body within the soft tissue s. IMPRESSION: Negative
[2023-12-22 15:44] VITALS: BP 128/74; PULSE 90
== END 2023-12-22 15:16 | disposition home or self-care (01) ==
LOC: EC 14:51
DX: S91.202A Unspecified open wound of left great toe with damage to nail, initial encounter (principal); F17.290 Nicotine dependence, other tobacco product, uncomplicated; Z88.0 Allergy status to penicillin; Z91.030 Bee allergy status; X58.XXXA Exposure to other specified factors, initial encounter
CPT/HCPCS: 99283

== ENCOUNTER 2024-04-02 16:35 | Emergency (ER) | payer MEDICARE ==
[2024-04-02 16:43] LABS: Glucose,Whole Blood 585 mg/dL (70-110)
[2024-04-02 17:18] LABS: Basophils # (A) 0.1 k/uL (0-0.2); Basophils % (A) 1 %; Eosinophils % (A) 0 %; HCT 47.2 % (39.0-53.0); Lymphocytes # (A) 3.2 k/uL (1.0-4.8); Lymphocytes % (A) 31 %; MCV 79.6 fL (80.0-100.0); Mean Platelet Volume 9.6; Monocytes # (A) 0.6 k/uL (0-1.0); Monocytes % (A) 6 %; Neutrophils # (A) 6.3 k/uL (1.3-7.7); Neutrophils % (A) 61 %; Platelet Count 186 k/uL (150-450); RBC 5.93 m/uL (4.30-5.90); RDW 12.9 % (11.5-15.5); WBC 10.4 k/uL (3.8-10.6)
--- NOTE | 2024-04-02 17:20 | ED ---
Recheck HPI - General Source: patient, RN notes reviewed Mode of arrival: ambulatory Limitations: no limitations - History of Present Illness Onset/Timin -: days(s) <Justin Gray - Last Filed: 04/02/24 17:17> - General Source: patient, RN notes reviewed, old records reviewed Mode of arrival: ambulatory - History of Present Illness MD Complaint: abnormal lab (Elevated blood sugar) -: days(s) Returns Today for: Called Because of Abnormal Lab/Test Symptoms Since Prior Visit: no new symptoms Context: called for abnormal lab result Associated Symptoms: none <Vladimir Castellanos - Last Filed: 04/02/24 20:32> - General Chief Complaint: Recheck/Abnormal Lab/Rx Stated Complaint: high blood sugar Time Seen by Provider: 04/02/24 16:51 - History of Present Illness Initial Comments: Quick note: This is a 28-year-old male with history of diabetes presenting for elevated blood glucose levels x 2 days. Patient states his blood glucose has been reading as "HI" creating concern for him to work around heavy machinery at work, causing him to miss the last 2 days. Patient endorses polyuria but otherwise denies constitutional or neurological symptoms associated with high blood glucose levels. Denies vision change, dizziness/lightheadedness, altered mental status, altered LOC. (Justin Gray) This is a 28-year-old male for critical high blood sugar for a few days now. Lightheadedness and dizziness and has not been feeling well, has missed work (Vladimir Castellanos) - Related Data Home Medications Medication Instructions Recorded Confirmed Ascorbic Acid [Vitamin C] 500 mg PO BID 06/16/23 06/16/23 Cholecalciferol [Vitamin D3 (125 125 mcg PO DAILY 06/16/23 06/16/23 Mcg = 5000 Iu)] [place] Carbonate [[place] 600 mg PO HS 06/16/23 06/16/23 Carbonate ER] Zinc Gluconate [Zinc] 25 mg PO DAILY 06/16/23 06/16/23 fluPHENAZine decanoate [Prolixin 25 mg IM Q14D 06/16/23 06/16/23 Decanoate] Previous Rx's Medication Instructions Recorded Divalproex ER [Depakote ER] 1,000 mg PO HS 30 Days #60 tab 08/21/22 PARoxetine [Paxil] 40 mg PO DAILY 30 Days #60 tab 08/21/22 lamoTRIgine [LaMICtal] 100 mg PO DAILY 30 Days #30 tab 08/21/22 Allergies Allergy/AdvReac Type Severity Reaction Status Date / Time Penicillins Allergy Rash/Hives Verified 04/02/24 16:41 venom-honey bee Allergy Swelling Verified 04/02/24 16:41 [bee venom (honey bee)] Review of Systems ROS Other: All systems not noted in ROS Statement are negative. <Justin Gray - Last Filed: 04/02/24 17:17> ROS Other: All systems not noted in ROS Statement are negative. <Vladimir Castellanos - Last Filed: 04/02/24 20:32> ROS Statement: Those systems with pertinent positive or pertinent negative responses have been documented in the HPI. Past Medical History Past Medical History: Diabetes Mellitus History of Any Multi-Drug Resistant Organisms: None Reported Past Surgical History: No Surgical Hx Reported Additional Past Surgical History / Comment(s): extra thumb removed from right hand. wisdom teeth. eustachian tubes. Past Psychological History: Schizoaffective Disorder Smoking Status: Vaper Past Alcohol Use History: None Reported Past Drug Use History: None Reported - Past Family History Mother Family Medical History: Diabetes Mellitus <Justin Gray [place] Filed: 04/02/24 17:17> General Exam Limitations: no limitations <Justin Gray Last Filed: 04/02/24 17:17> General appearance: alert, in no apparent distress Head exam: Present: atraumatic, normocephalic, normal inspection Eye exam: Present: normal appearance, PERRL, EOMI. Absent: scleral icterus, conjunctival injection, periorbital swelling ENT exam: Present: normal exam, mucous membranes moist Neck exam: Present: normal inspection. Absent: tenderness, meningismus, lymphadenopathy Respiratory exam: Present: normal lung sounds bilaterally. Absent: respiratory distress, wheezes, rales, rhonchi, stridor Cardiovascular Exam: Present: normal rhythm, tachycardia, normal heart sounds. Absent: systolic murmur, diastolic murmur, rubs, gallop, clicks GI/Abdominal exam: Present: soft, normal bowel sounds. Absent: distended, tenderness, guarding, rebound, rigid Extremities exam: Present: normal inspection, full ROM, normal capillary refill. Absent: tenderness, pedal edema, joint swelling, calf tenderness Back exam: Present: normal inspection Neurological exam: Present: alert, oriented X3, CN II-XII intact Psychiatric exam: Present: normal affect, normal mood Skin exam: Present: warm, dry, intact, normal color. Absent: rash <Vladimir Castellanos - Last Filed: 04/02/24 20:32> - General Exam Comments Initial Comments: Visual Physical Exam Vital signs reviewed General: Well-appearing, nontoxic, no acute distress. Head: Normocephalic, atraumatic Eyes: PERRLA, EOMI ENT: Airway patent Chest: Nonlabored breathing Skin: No visual rash, normal skin tone Neuro: Alert and oriented 3 Musculoskeletal: No gross abnormalities (Justin Gray) Course <Vladimir Castellanos Filed: 04/02/24 20:32> Vital Signs 04/02/24 16:39 Temperature 98.8 F Pulse Rate 120 H Respiratory 18 Rate Blood Pressure 150/92 O2 Sat by Pulse 99 Oximetry - Reevaluation(s) Reevaluation #1: 04/02/24 19:22 Medical records reviewed (Vladimir Castellanos) Reevaluation #2: 04/02/24 19:22 Patient symptoms improving (Vladimir Castellanos) Reevaluation #3: 04/02/24 19:22 Patient informed of results questions answered (Vladimir Castellanos) Reevaluation #4: Was pt. sent in by a medical professional or institution (, PA, MORTGAGE COORDINATOR, urgent c are, hospital, or detention...) When possible be specific @ -no Did you speak to anyone other than the patient for history (EMS, parent, family, police, friend...)? What history was obtained from this source @ -no Did you review nursing and triage notes (agree or disagree)? Why? @ -agree Are old charts reviewed (outside hosp., previous admission, EMS record, old EKG, old radiological studies, urgent care reports/EKG's, detention records)? Report findings @ -yes Differential Diagnosis (chest pain, altered mental status, abdominal pain women, abdominal pain men, vaginal bleeding, weakness, fever, dyspnea, syncope, headache, dizziness, GI bleed, back pain, seizure, CVA, palpatations, mental health, musculoskeletal)? @ -prior EKG interpreted by me (3pts min.). @ -yes X-rays interpreted by me (1pt min.). @ -yes negative for acute disease CT interpreted by me (1pt min.). @ -no U/S interpreted by me (1pt. min.). @ -no What testing was considered but not performed or refused? (CT, X-rays, U/S, labs)? Why? @ -none What meds were considered but not given or refused? Why? @ -none Did you discuss the management of the patient with other professionals (professionals i.e. Dr., PA, MORTGAGE COORDINATOR, lab, RT, psych nurse, social sciences professor, clinical dietetic technician, teacher, personal banking officer, casework supervisor)? Give summary @ -no Was smoking cessation discussed for >3mins.? @ -no Was critical care preformed (if so, how long)? @ -no Were there social determinants of health that impacted care today? How? (Home lessness, low income, unemployed, alcoholism, drug addiction, transportation, low edu. Level, literacy, decrease access to med. care, longterm, rehab)? @ -none Was there de-escalation of care discussed even if they declined (Discuss DNR or withdrawal of care, Hospice)? DNR status @ -no What co-morbidities impacted this encounter? (DM, HTN, Smoking, COPD, CAD, Cancer, CVA, ARF, Chemo, Hep., AIDS, mental health diagnosis, sleep apnea, morbid obesity)? @ -none Was patient admitted / discharged? Hospital course, mention meds given and route, prescriptions, significant lab abnormalities, going to OR and other pertinent info. @ - Undiagnosed new problem with uncertain prognosis? @ -no Drug Therapy requiring intensive monitoring for toxicity (Heparin, Nitro, Insulin, Cardizem)? @ -no Were any procedures done? @ -no Diagnosis/symptom? @ - Acute, or Chronic, or Acute on Chronic? @ -Acute Uncomplicated (without systemic symptoms) or Complicated (systemic symptoms)? @ -Complicated Side effects of treatment? @ -no Exacerbation, Progression, or Severe Exacerbation? @ -exacerbation Poses a threat to life or bodily function? How? (Chest pain, [place], [place], pneumonia, PE, COPD, DKA, ARF, appy, cholecystitis, CVA, Diverticulitis, Homicidal, Suicidal, threat to staff... and all critical care pts) @ -yes (Vladimir Castellanos) Reevaluation #5: Differential Weakness: Hypoglycemia, shock, sepsis, hyponatremia, anemia, infection, NM, ETOH, adverse medicine reaction, overdose, stroke, this is not meant to be an all-inclusive list. (Vladimir Castellanos) Medical Decision Making <Justin Gray - Last Filed: 04/02/24 17:17> - Lab Data Result diagrams: 04/02/24 17:10 04/02/24 17:10 <Vladimir Castellanos - Last Filed: 04/02/24 20:32> - Medical Decision Making I completed the quick note portion of this chart signed ZAINAB Amaya (Justin Gray) 28 male to the ED for weakness and hyperglycemia, patient has no symptoms feels improved and OK for DC (Vladimir Castellanos) - Lab Data Lab Results 04/02/24 04/02/24 04/02/24 Range/Units 16:42 17:10 17:10 WBC 10.4 (3.8-10.6) k/uL RBC 5.93 H (4.30-5.90) m/uL Hgb 16.0 (13.0-17.5) gm/dL Hct 47.2 (39.0-53.0) % MCV 79.6 L (80.0-100.0) fL MCH 27.0 (25.0-35.0) pg MCHC 34.0 (31.0-37.0) g/dL RDW 12.9 (11.5-15.5) % Plt Count 186 (150-450) k/uL MPV 9.6 Neutrophils % 61 % Lymphocytes % 31 % Monocytes % 6 % Eosinophils % 0 % Basophils % 1 % Neutrophils # 6.3 (1.3-7.7) k/uL Lymphocytes # 3.2 (1.0-4.8) k/uL Monocytes # 0.6 (0-1.0) k/uL Eosinophils # 0.0 (0-0.7) k/uL Basophils # 0.1 (0-0.2) k/uL Sodium 136 L (137-145) mmol/L Potassium 4.4 (3.5-5.1) mmol/L Chloride 95 L (98-107) mmol/L Carbon Dioxide 24 (22-30) mmol/L Anion Gap 17 mmol/L BUN 20 (9-20) mg/dL Creatinine 0.77 (0.66-1.25) mg/dL Est GFR (CKD-EPI)AfAm >90 (>60 ml/min/1.73 sqM) Est GFR (CKD-EPI)NonAf >90 (>60 ml/min/1.73 sqM) Glucose 565 H* (74-99) mg/dL POC Glucose (mg/dL) 585 H* (70-110) mg/dL POC Glu Cena ID Zoe Rendon Calcium 10.7 H (8.4-10.2) mg/dL Total Bilirubin 0.6 (0.2-1.3) mg/dL AST 22 (17-59) U/L ALT 28 (4-49) U/L Alkaline Phosphatase 100 (38-126) U/L Total Protein 8.7 H (6.3-8.2) g/dL Albumin 5.2 H (3.5-5.0) g/dL Disposition <Justin Gray - Last Filed: 04/02/24 17:17> Is patient prescribed a controlled substance at d/c from ED?: No Time of Disposition: 21:00 <Vladimir Castellanos - Last Filed: 04/02/24 20:32> Clinical Impression: Hyperglycemia Disposition: HOME SELF-CARE Condition: Good Instructions (If sedation given, give patient instructions): Diabetic Hypergl ycemia (ED) Referrals: Usha Hagen MD [Primary Care Provider] - 1-2 days
[2024-04-02 17:27] LABS: ALT 28 U/L (4-49); AST 22 U/L (17-59); African American GFR (CKD) >90 (>60 ml/min/1.73 sqM); Albumin 5.2 g/dL (3.5-5.0); Alkaline Phosphatase 100 U/L (38-126); Anion Gap 17 mmol/L; Blood Urea Nitrogen 20 mg/dL (9-20); Calcium 10.7 mg/dL (8.4-10.2); Carbon Dioxide 24 mmol/L (22-30); Chloride 95 mmol/L (98-107); Non-African American GFR(CKD) >90 (>60 ml/min/1.73 sqM); Potassium 4.4 mmol/L (3.5-5.1); Sodium 136 mmol/L (137-145); Total Bilirubin 0.6 mg/dL (0.2-1.3); Total Protein 8.7 g/dL (6.3-8.2)
[2024-04-02 17:36] LABS: Glucose 565 mg/dL (74-99)
[2024-04-02] MEDS: SODIUM CHLORIDE 0.9% 2,000 ML IV STA (20:35)
[2024-04-02 20:42] LABS: Glucose,Whole Blood 286 mg/dL (70-110)
[2024-04-02] MEDS: INSULIN REGULAR 100 UNIT/ML VIAL (IV) IV ONE (20:44)
[2024-04-02] MEDS: INSULIN REGULAR 100 UNIT/ML VIAL (IM/SQ) SQ ONE (20:44)
[2024-04-02 21:56] LABS: Appearance,Urine Clear (Clear); Bilirubin,Urine Negative (Negative); Blood,Urine Negative (Negative); Color,Urine Colorless; Glucose,Urine (UA) 4+ (Negative); Ketones,Urine 1+ (Negative); Leukocyte Esterase,Urine Negative (Negative); Nitrite,Urine Negative (Negative); Protein,Urine Negative (Negative); Specific Gravity,Urine 1.041 (1.001-1.035); Urobilinogen,Urine <2.0 mg/dL (<2.0)
[2024-04-02 22:08] VITALS: BP 130/83; PULSE 112; RESP 16; TEMP 97.7
== END 2024-04-02 22:08 | disposition home or self-care (01) ==
LOC: EC 16:35
DX: R73.9 Hyperglycemia, unspecified (principal); F17.290 Nicotine dependence, other tobacco product, uncomplicated; Z88.0 Allergy status to penicillin; Z91.030 Bee allergy status
CPT/HCPCS: 36415; 80053; 81003; 85025; 96360; 99283

== ENCOUNTER 2024-09-26 10:56 | Emergency (ER) | payer MEDICARE, OTHER ==
[2024-09-26 11:05] LABS: Glucose,Whole Blood 416 mg/dL (70-110)
[2024-09-26 12:01] LABS: Basophils # (A) 0.03 10*3/uL (0.00-0.10); Basophils % (A) 0.4 %; Eosinophils # (A) 0.12 10*3/uL (0.04-0.35); Eosinophils % (A) 1.7 %; HCT 42.7 % (39.6-50.0); HGB 15.6 g/dL (13.0-17.0); Lymphocytes % (A) 29.1 %; MCH 28.3 pg (27.0-32.0); MCHC 36.5 g/dL (32.0-37.0); MCV 77.4 fL (80.0-97.0); Mean Platelet Volume 12.2 fL (9.5-12.2); Monocytes # (A) 0.67 10*3/uL (0.20-1.00); Monocytes % (A) 9.3 %; Neutrophils # (A) 4.24 10*3/uL (1.80-7.70); Neutrophils % (A) 58.8 %; Platelet Count 244 10*3/uL (140-440); RBC 5.52 10*6/uL (4.40-5.60); RDW 13.5 % (11.5-14.5); VBG PH 7.38 (7.31-7.41); WBC 7.21 10*3/uL (4.50-10.00)
[2024-09-26] MEDS: SODIUM CHLORIDE 0.9% 1,000 ML IV SCH (12:04)
[2024-09-26 12:15] LABS: ALT 27 U/L (4-49); AST 29 U/L (17-59); African American GFR (CKD) >90 (>60 ml/min/1.73 sqM); Albumin 4.9 g/dL (3.5-5.0); Alkaline Phosphatase 85 U/L (38-126); Anion Gap 14 mmol/L; Blood Urea Nitrogen 21 mg/dL (9-20); Calcium 10.2 mg/dL (8.4-10.2); Carbon Dioxide 23 mmol/L (22-30); Chloride 101 mmol/L (98-107); Glucose 394 mg/dL (74-99); Non-African American GFR(CKD) >90 (>60 ml/min/1.73 sqM); Potassium 4.6 mmol/L (3.5-5.1); Sodium 138 mmol/L (137-145); Total Bilirubin 0.7 mg/dL (0.2-1.3); Total Protein 8.2 g/dL (6.3-8.2)
[2024-09-26 13:01] LABS: Appearance,Urine Clear (Clear); Bilirubin,Urine Negative (Negative); Blood,Urine Negative (Negative); Color,Urine Colorless; Glucose,Urine (UA) 4+ (Negative); Ketones,Urine Negative (Negative); Leukocyte Esterase,Urine Negative (Negative); Nitrite,Urine Negative (Negative); Protein,Urine Negative (Negative); Specific Gravity,Urine 1.043 (1.001-1.035); Urobilinogen,Urine <2.0 mg/dL (<2.0)
[2024-09-26 13:08] VITALS: PULSE 84
[2024-09-26 13:54] LABS: Glucose,Whole Blood 308 mg/dL (70-110)
--- NOTE | 2024-09-26 13:54 | ED ---
General Adult HPI - General Chief complaint: Recheck/Abnormal Lab/Rx Stated complaint: Hyperglycemia Time Seen by Provider: 09/26/24 11:40 Source: patient, RN notes reviewed, old records reviewed Mode of arrival: ambulatory Limitations: no limitations - History of Present Illness Initial comments: Patient is a 29-year-old male who presents emergency department for hyperglycemia. Has a history of diabetes. States he has been compliant with his medications. States he typically has a blood sugar level of 200-300. Today it was elevated and he was told to come here for evaluation. Has no other acute complaints. Presents for further evaluation. - Related Data Home Medications Medication Instructions Recorded Confirmed Ascorbic Acid [Vitamin C] 500 mg PO BID 06/16/23 06/16/23 Cholecalciferol [Vitamin D3 (125 125 mcg PO DAILY 06/16/23 06/16/23 Mcg = 5000 Iu)] [place] Carbonate [[place] 600 mg PO HS 06/16/23 06/16/23 Carbonate ER] Zinc Gluconate [Zinc] 25 mg PO DAILY 06/16/23 06/16/23 fluPHENAZine decanoate [Prolixin 25 mg IM Q14D 06/16/23 06/16/23 Decanoate] Previous Rx's Medication Instructions Recorded Divalproex ER [Depakote ER] 1,000 mg PO HS 30 Days #60 tab 08/21/22 PARoxetine [Paxil] 40 mg PO DAILY 30 Days #60 tab 08/21/22 lamoTRIgine [LaMICtal] 100 mg PO DAILY 30 Days #30 tab 08/21/22 Allergies Allergy/AdvReac Type Severity Reaction Status Date / Time Penicillins Allergy Rash/Hives Verified 09/26/24 11:05 venom-honey bee Allergy Swelling Verified 09/26/24 11:05 [bee venom (honey bee)] Review of Systems ROS Statement: Those systems with pertinent positive or pertinent negative responses have been documented in the HPI. Review of Systems: CONST: Denies fever EYES: Denies blurry vision ENT: Denies nasal congestion C/V: Denies Chest pain RESP: Denies shortness of breath GI: Denies abdominal pain : Denies dysuria SKIN: Denies rash. MSK: Denies joint pain. NEURO: Denies headache ROS Other: All systems not noted in ROS Statement are negative. Past Medical History Past Medical History: Diabetes Mellitus History of Any Multi-Drug Resistant Organisms: None Reported Past Surgical History: No Surgical Hx Reported Additional Past Surgical History / Comment(s): extra thumb removed from right hand. wisdom teeth. eustachian tubes. Past Psychological History: Schizoaffective Disorder Smoking Status: Vaper Past Alcohol Use History: None Reported Past Drug Use History: None Reported - Past Family History Mother Family Medical History: Diabetes Mellitus General Exam - General Exam Comments Initial Comments: General: Appears in no acute distress. HEAD: Normal with no signs of head trauma. EYES: EOMI ENT: Hearing grossly intact, normal oropharynx. RESPIRATORY: Clear breath sounds bilaterally. No wheezes, rales, or rhonchi. C/V: Regular rate and rhythm. S1 and S2 auscultated, no edema, peripheral pulses 2+ and intact throughout ABD: Abd is soft, nontender, nondistended EXT: Normal range of motion, no obvious deformity. No focal deficits. SKIN: No rashes or lesions observed on exposed skin. NEURO: Alert and oriented x 4. Limitations: no limitations Course Vital Signs 09/26/24 09/26/24 09/26/24 10:58 13:07 13:57 Temperature 98.1 F 97.8 F Pulse Rate 102 H 84 84 Respiratory 18 18 16 Rate Blood Pressure 150/85 141/95 139/86 O2 Sat by Pulse 99 99 95 Oximetry Medical Decision Making - Medical Decision Making Was pt. sent in by a medical professional or institution (, PA, GREEN BUILDING DESIGN SPECIALIST, urgent care, hospital, or residential...) When possible be specific @ -No Did you speak to anyone other than the patient for history (EMS, parent, family, police, friend...)? What history was obtained from this source @ -No Did you review nursing and triage notes (agree or disagree)? Why? @ -I reviewed and agree with nursing and triage notes Were old charts reviewed (outside hosp., previous admission, EMS record, old EKG, old radiological studies, urgent care reports/EKG's, residential records)? Report findings @ -Patient is on Mounjaro. No insulin use. Differential Diagnosis (chest pain, altered mental status, abdominal pain women, abdominal pain men, vaginal bleeding, weakness, fever, dyspnea, syncope, headache, dizziness, GI bleed, back pain, seizure, CVA, palpatations, mental health, musculoskeletal)? @ -Hyperglycemia, DKA, electrolyte abnormality. This list is not all inclusive. EKG interpreted by me (3pts min.). @ -As above X-rays interpreted by me (1pt min.). @ -None done CT interpreted by me (1pt min.). @ -None done U/S interpreted by me (1pt. min.). @ -None done What testing was considered but not performed or refused? (CT, X-rays, U/S, labs)? Why? @ -None What meds were considered but not given or refused? Why? @ -None Did you discuss the management of the patient with other professionals (professionals i.e. Dr., PA, GREEN BUILDING DESIGN SPECIALIST, lab, RT, psych nurse, psychosocial rehabilitation counselor, boot and saddle repair person, teacher, air defense artillery officer, family service caseworker)? Give summary @ -No Was smoking cessation discussed for >3mins.? @ -No Was critical care preformed (if so, how long)? @ -No Were there social determinants of health that impacted care today? How? (Ho melessness, low income, unemployed, alcoholism, drug addiction, transportation, low edu. Level, literacy, decrease access to med. care, senior living, rehab)? @ -No Was there de-escalation of care discussed even if they declined (Discuss DNR or withdrawal of care, Hospice)? DNR status @ -No What co-morbidities impacted this encounter? (DM, HTN, Smoking, COPD, CAD, Cancer, CVA, ARF, Chemo, Hep., AIDS, mental health diagnosis, sleep apnea, morbid obesity)? @ -Via-efoebbe-rushkunmx diabetes. Was patient admitted / discharged? Hospital course, mention meds given and route, prescriptions, significant lab abnormalities, going to OR and other pertinent info. @ -Based on patient's presentation and physical exam, presents with hyperglycemia. Does not take insulin but does take a weekly injectable. States he has been compliant with it. States that sugars are typically 200-300. Was told to come in due to sugars being elevated in the 400s. He has no acute complaints. Vitals within acceptable limits. We will screen for DKA. He was in agreement this plan. He is given multiple fluid boluses. Labs are remarkable for hyperglycemia but no other obvious findings. 4+ glucose but no acetone. No ketones in the urine. On reevaluation, blood sugars improved to 308. Remains asymptomatic. Will be discharged home at this time. Recommend follow-up with PCP for better monitoring and adjustments in his diabetic medications. He was in agreement this plan. I instructed the patient to follow up with their PCP in the next 1-3 days. I explained that the patient should return to the emergency department if they experience any worsening symptoms. Strict return precautions were discussed with the patient. The patient expressed understanding of these instructions. I answered all questions that the patient had. The patient was discharged home in good condition with their prescriptions and follow up information. Undiagnosed new problem with uncertain prognosis? @ -No Drug Therapy requiring intensive monitoring for toxicity (Heparin, Nitro, Insulin, Cardizem)? @ -No Were any procedures done? @ -No Diagnosis/symptom? @ -Hyperglycemia in the setting of [id number] diabetes Acute, or Chronic, or Acute on Chronic? @ -Acute Uncomplicated (without systemic symptoms) or Complicated (systemic symptoms)? @ -Uncomplicated Side effects of treatment? @ -No Exacerbation, Progression, or Severe Exacerbation? @ -No Poses a threat to life or bodily function? How? (Chest pain, [place], [place], pneumonia, PE, COPD, DKA, ARF, appy, cholecystitis, CVA, Diverticulitis, Homicidal, Suicidal, threat to staff... and all critical care pts) @ -Unlikely at this time - Lab Data Result diagrams: 09/26/24 11:52 09/26/24 11:52 Lab Results 09/26/24 09/26/24 09/26/24 Range/Units 11:03 11:52 11:52 WBC 7.21 (4.50-10.00) 10*3/uL RBC 5.52 (4.40-5.60) 10*6/uL Hgb 15.6 (13.0-17.0) g/dL Hct 42.7 (39.6-50.0) % MCV 77.4 L (80.0-97.0) fL MCH 28.3 (27.0-32.0) pg MCHC 36.5 (32.0-37.0) g/dL Plt Count 244 (140-440) 10*3/uL MPV 12.2 (9.5-12.2) fL Immature Gran % (Auto) 0.7 % Neutrophils % 58.8 % Lymphocytes % 29.1 % Monocytes % 9.3 % Eosinophils % 1.7 % Basophils % 0.4 % Immature Gran # 0.05 H (0.00-0.04) 10*3/uL Neutrophils # 4.24 (1.80-7.70) 10*3/uL Lymphocytes # 2.10 (0.90-5.00) 10*3/uL Monocytes # 0.67 (0.20-1.00) 10*3/uL Eosinophils # 0.12 (0.04-0.35) 10*3/uL Basophils # 0.03 (0.00-0.10) 10*3/uL VBG pH (7.31-7.41) VBG pCO2 (37-51) mmHg VBG HCO3 (24-28) mmol/L Sodium 138 (137-145) mmol/L Potassium 4.6 (3.5-5.1) mmol/L Chloride 101 (98-107) mmol/L Carbon Dioxide 23 (22-30) mmol/L Anion Gap 14 mmol/L BUN 21 H (9-20) mg/dL Creatinine 0.61 L (0.66-1.25) mg/dL Est GFR (CKD-EPI)AfAm >90 (>60 ml/min/1.73 sqM) Est GFR (CKD-EPI)NonAf >90 (>60 ml/min/1.73 sqM) Glucose 394 H (74-99) mg/dL POC Glucose (mg/dL) 416 H (70-110) mg/dL POC Glu Emergency Registrar ID Chris Ericka Calcium 10.2 (8.4-10.2) mg/dL Total Bilirubin 0.7 (0.2-1.3) mg/dL AST 29 (17-59) U/L ALT 27 (4-49) U/L Alkaline Phosphatase 85 (38-126) U/L Total Protein 8.2 (6.3-8.2) g/dL Albumin 4.9 (3.5-5.0) g/dL Urine Color Urine Appearance (Clear) Urine pH (5.0-8.0) Ur Specific [place] (1.001-1.035) Urine Protein (Negative) Urine Glucose (UA) (Negative) Urine Ketones (Negative) Urine Blood (Negative) Urine Nitrite (Negative) Urine Bilirubin (Negative) Urine Urobilinogen (<2.0) mg/dL Ur Leukocyte Esterase (Negative) Acetone, Qual Negative (Negative) 09/26/24 09/26/24 09/26/24 Range/Units 11:52 12:49 13:52 WBC (4.50-10.00) 10*3/uL RBC (4.40-5.60) 10*6/uL Hgb (13.0-17.0) g/dL Hct (39.6-50.0) % MCV (80.0-97.0) fL MCH (27.0-32.0) pg MCHC (32.0-37.0) g/dL Plt Count (140-440) 10*3/uL MPV (9.5-12.2) fL Immature Gran % (Auto) % Neutrophils % % Lymphocytes % % Monocytes % % Eosinophils % % Basophils % % Immature Gran # (0.00-0.04) 10*3/uL Neutrophils # (1.80-7.70) 10*3/uL Lymphocytes # (0.90-5.00) 10*3/uL Monocytes # (0.20-1.00) 10*3/uL Eosinophils # (0.04-0.35) 10*3/uL Basophils # (0.00-0.10) 10*3/uL VBG pH 7.38 (7.31-7.41) VBG pCO2 43 (37-51) mmHg VBG HCO3 26 (24-28) mmol/L Sodium (137-145) mmol/L Potassium (3.5-5.1) mmol/L Chloride (98-107) mmol/L Carbon Dioxide (22-30) mmol/L Anion Gap mmol/L BUN (9-20) mg/dL Creatinine (0.66-1.25) mg/dL Est GFR (CKD-EPI)AfAm (>60 ml/min/1.73 sqM) Est GFR (CKD-EPI)NonAf (>60 ml/min/1.73 sqM) Glucose (74-99) mg/dL POC Glucose (mg/dL) 308 H (70-110) mg/dL POC Glu Emergency Registrar ID [facility] Calcium (8.4-10.2) mg/dL Total Bilirubin (0.2-1.3) mg/dL AST (17-59) U/L ALT (4-49) U/L Alkaline Phosphatase (38-126) U/L Total Protein (6.3-8.2) g/dL Albumin (3.5-5.0) g/dL Urine Color Colorless Urine Appearance Clear (Clear) Urine pH 6.0 (5.0-8.0) Ur Specific [place] 1.043 H (1.001-1.035) Urine Protein Negative (Negative) Urine Glucose (UA) 4+ H (Negative) Urine Ketones Negative (Negative) Urine Blood Negative (Negative) Urine Nitrite Negative (Negative) Urine Bilirubin Negative (Negative) Urine Urobilinogen <2.0 (<2.0) mg/dL Ur Leukocyte Esterase Negative (Negative) Acetone, Qual (Negative) - EKG Data -: EKG Interpreted by Me EKG Comments: 12-lead Electrocardiogram Interpretation Note EKG was reviewed and interpreted by myself. 12-lead ECG performed at 1159 is interpreted by me as revealing normal sinus rhythm at a rate of 94 beats per minute. [place] is normal. [place] interval is 145 ms, QRS duration 77 ms, QTc is 368 ms.. There were no ST or T wave abnormalities to suggest myocardial ischemia or injury. R wave progression across the precordium was satisfactory. By my interpretation this EKG is non-diagnostic for acute ischemia. Disposition Clinical Impression: Hyperglycemia Disposition: HOME SELF-CARE Condition: Good Instructions (If sedation given, give patient instructions): Diabetic Hyperglycemia (ED) Additional Instructions: Follow-up with your PCP in the next 1 to 3 days. Return if any worsening symptoms. Is patient prescribed a controlled substance at d/c from ED?: No Referrals: Usha Hagen MD [Primary Care Provider] - 1-2 days Time of Disposition: 13:54
[2024-09-26 14:00] VITALS: BP 139/86; RESP 16; TEMP 97.8
== END 2024-09-26 14:03 | disposition home or self-care (01) ==
LOC: EC 10:56
DX: E11.65 Type 2 diabetes mellitus with hyperglycemia (principal); F17.290 Nicotine dependence, other tobacco product, uncomplicated; Z88.0 Allergy status to penicillin; Z91.030 Bee allergy status; Z79.85 Long-term (current) use of injectable non-insulin antidiabetic drugs
CPT/HCPCS: 36415; 80053; 81003; 82009; 82803; 85025; 93005; 96360; 96361; 99285